=== PATIENT | female | born 1955 | race Caucasian/White ===

== ENCOUNTER 2022-06-08 13:44 | Outpatient (CLI) | payer MEDICARE, OTHER, SELFPAY ==
[2022-06-08] VITALS (10 sets, daily range): BP systolic 119–156; BP diastolic 78–103; PULSE 86–96; RESP 18–24; TEMP 36.4; O2SAT 92–96
--- NOTE | 2022-06-08 13:46 | DI.RAD.S_ITS ---
PROCEDURE: PAIN L INTERLAMINAR/CAUDAL INJ INDICATIONS: SPONDYLOSIS COMPARISON: None. FINDINGS: Fluoroscopic spot filming was performed to verify placement of spinal needles at the lower/mid lumbar level(s), as labeled on the films. Appropriate location(s) of the needle tip(s) was confirmed by injection of iodinated contrast. IMPRESSION: Needle placement as above Dictated by: Kurt Bella M.D. on 06/08/2022 at 16:51 Approved by: Kurt Bella M.D. on 06/08/2022 at 16:52
[2022-06-08] MEDS: IOPAMIDOL 15 ML VIAL 3 ML INJ (14:32)
[2022-06-08] MEDS: DEXAMETHASONE 10 MG/ML VIAL 20 MG INJ (14:32)
[2022-06-08] MEDS: BUPIVACAINE 0.25% (PF) VIAL 2 ML INJ (14:32)
[2022-06-08] MEDS: MIDAZOLAM 2 MG/2 ML VIAL 4 MG IV (14:32)
[2022-06-08] MEDS: BETAMETHASONE 30 MG/5 ML MDV 6 MG INJ (14:36)
--- NOTE | 2022-06-08 14:45 | P.PCN_ITS ---
Date/Time/Diagnoses Date of procedure: 06/08/22 Time of procedure: 14:45 Pre-procedure diagnosis: 1. HNP WITH RADICULAR FEATURES, 2. MULTILEVEL CENTRAL STENOSIS, Post-procedure diagnosis: same Procedure Notes Procedure: 1. FLUOROSCOPICALLY GUIDED CONTRAST CONTROLLED INTERLAMINAR EPIDURAL STEROID INJECTION - L3/4 Indications: Otilia is referred by Dr. Doyle for treatment of Bilateral Foraminal Stenosis L>R LE symptoms. Physician: Leroy Moore Total Fluoroscopy time (seconds): 11 Total sedation minutes: 14 Complications: none Procedure in detail & Post-procedure care: FINDINGS Multilevel Central Spinal Stenosis with Nerve Root Compression DESCRIPTION OF PROCEDURE Fluoroscopically guided, contrast-controlled L3/4 translaminar epidural steroid injection. Following review of allergy and review of potential side effects and complications, including, but not necessarily limited to, infection, allergic reaction, local tissue breakdown, temporary as well as permanent nerve injury, paralysis, stroke and possible , the patient indicated that the patient understood and agreed to proceed. An informed consent document was signed by the patient, witnessed by a nurse, and placed in the patient's chart. Additionally, other treatment options including modalities, medications, and physical therapy were reviewed with the patient. After review of previous anaesthesic history and IV conscious sedation the patient was deemed safe to proceed with today?s procedure with IV conscious sedation as ASA class II designation. Safety time-out was performed to confirm patient ID, procedure to be performed and site of procedure. IV sedation was accomplished with a combination of 4mg of Versed was administered by the RN after DO order, titrated to patient comfort during the course of the procedure while the patient remained responsive to all verbal commands. In the prone position, following sterile prep and drape of the lumbar region, the L3/4 translaminar space was identified fluoroscopically. The skin was anesthetized via a 25-gauge, 1.5-inch needle with 1% lidocaine solution. At this point, a 22-gauge short bevel spinal needle was atraumatically introduced and advanced under fluoroscopic guidance into the region of the L3/4 translaminar space. Depth was confirmed on lateral view. Radiological data, including multiple fluoroscopic views of the lumbar spine, reveal a spinal needle at the L3/4 translaminar space. Lateral views then show placement of the needle in the epidural space. Subsequent views show contrast material flowing superiorly and inferiorly in the epidural space. No vascular or intrathecal uptake is observed. At this point, using loss of resistance technique with saline and air, the epidural space was entered. This was confirmed following negative aspiration with injection of approximately 1.5 cc of Isovue 200, showing excellent epidural flow without vascular or intrathecal uptake. At this point, 1cc of 1% lidocaine solution combined with 3cc or 20mg of dexamethasone and 6mg of betamethasone was injected without incident. The patient tolerated the procedure well without signs or symptoms of complications prior to transfer to the recovery area continued monitoring without incident. The patient was then transferred to the recovery area where they were observed for an appropriate period of time after the injection. The patient reported a VAS score of 6 prior to the procedure and a post- procedure VAS of 0. POST OP INSTRUCTIONS The patient was provided a Pain Log to continue to record their response to the target-specific procedure prior to follow-up visit with their referring physician. Additionally, specific post-injection care instructions and a contact number to our office were provided if concerns arise regarding possible complications associated with the procedure are suspected.
--- NOTE | 2022-06-08 15:23 | PC.NURSE ---
Patient cleared from sedation monitoring. Bilateral feet asleep. Unsteady gait. Dr. Moore aware. Holding to allow more time for numbness to improve.
--- NOTE | 2022-06-08 16:22 | PC.NURSE ---
Patient was steady on feet able to take a few steps, cleared to d/c home. Pt d/c home at 1610.
== END 2022-06-08 16:10 | disposition home or self-care (01) ==
PROVIDERS: PCP Family Medicine; Referring Provider Physical Medicine & Rehabilitation; Visit Provider Physical Medicine & Rehabilitation
DX: M48.061 Spinal stenosis, lumbar region without neurogenic claudication (principal); M51.16 Intervertebral disc disorders with radiculopathy, lumbar region
CPT/HCPCS: 62323; 99152; J0702; J1100; J2250; J3490

== ENCOUNTER → 2022-07-03 12:40 | Outpatient (CLI) | payer MEDICARE, OTHER, SELFPAY ==
[2022-07-03 13:41] LABS: COVID19 -Nasal RAPID Negative (Negative)
== END ==
PROVIDERS: PCP Family Medicine; Referring Provider Orthopaedic Surgery; Visit Provider Orthopaedic Surgery
DX: Z20.822 Contact with and (suspected) exposure to COVID-19 (principal)
CPT/HCPCS: 87635; C9803

== ENCOUNTER 2022-07-04 06:07 | Day surgery (SDC) | payer MEDICARE, OTHER, SELFPAY ==
[2022-06-26 10:28] VITALS: BMI 43.9
[2022-07-04] VITALS (13 sets, daily range): BP systolic 91–152; BP diastolic 40–92; PULSE 80–91; RESP 16–19; TEMP 36–36.6; O2SAT 90–100; BMI 43.7
--- NOTE | 2022-07-04 06:00 | DI.RAD.S_ITS ---
PROCEDURE: XR KNEE RT 1TO2V INDICATIONS: TKA TECHNIQUE: 2 view(s) of the knee acquired. COMPARISON: [facility] Carlos Doyle, CR, XR KNEE ARTHRITIC SERIES BI, 05/04/2022, 11:57. FINDINGS: Bones: Patient is status post knee joint arthroplasty. Hardware components are in expected positions. Visualized bony structures are intact. Soft tissues: Overlying postoperative changes are noted. IMPRESSION: Expected immediate postoperative appearance of right TKA. Dictated by: Truman ALEXANDER Interpreted: Craig Laird MD on 07/04/2022 at 16:02 Transcribed by: MIKE on 07/04/2022 at 16:03 Approved by: Craig Laird M.D. on 07/05/2022 at 20:57
[2022-07-04] MEDS: ACETAMINOPHEN 325 MG TABLET 975 MG PO (07:06)
[2022-07-04] MEDS: CELECOXIB 200 MG CAPSULE PO (07:07)
[2022-07-04] MEDS: LACTATED RINGERS 1,000 ML 42 ML IV (07:11)
[2022-07-04] MEDS: VANCOMYCIN 1,000 MG/200 ML PIGGYBACK 200 MG IV (07:38)
--- NOTE | 2022-07-04 07:43 | P.OP_ITS ---
Operative Date/Time/Diagnoses Date of procedure: 07/04/22 Time of procedure: 08:10 Pre-op diagnosis: Right knee osteoarthritis severe Post-op diagnosis: same Procedure & Clinicians Procedure: Right total knee arthroplasty Same procedure as scheduled: Yes Indications: The patient has had progressively worsening right knee pain with radiographic changes consistent with arthritis. Non-operative management has failed and the patient has requested total knee replacement. The risks, benefits and alternatives to surgery were discussed with the patient prior to proceeding. Risks discussed included, but were not limited to, failure to relieve pain, stiffness, infection, nerve damage, deep venous thrombosis, pulmonary embolism, stroke, coma, heart attack, permanent paralysis and , as well as the potential need for eventual revision of the prosthetic. Surgeon: [facility] Recruiting Intern: Buck Wakefield Anesthesia Type: General Operative Notes Findings: Severe right knee osteoarthritis, adequate stability Closure Type: primary Specimen(s): none sent Prosthetic devices, grafts, tissues, transplants, or devices: [facility] BCS 2 size 6 femur, size 4 tibia, +11 poly, 32 x 7-1/2 mm patella Estimated Blood Loss (mL): 250 Blood products transfused: none Tourniquet time (min): 90 Procedure in detail: The patient was seen in the pre-operative area, where the patient identified the right knee as the operative site and this was marked with my initials. The patient received pre-operative antibiotics, and was taken to the operating room and placed on the operative table in the supine position. After satisfactory anesthesia, a grants administrator out was performed. The right leg was encircled with a tourniquet about the proximal thigh, and the leg was prepared from the toes to the tourniquet with ChloroPrep in the usual fashion and draped through sterile drapes. The leg was elevated and exsanguinated with Eschmark bandage and the tourniquet inflated to [250] mmHg pressure. The knee was approached through an approximately 18 cm incision centered over the patella and carried into the knee through a medial parapatellar arthrotomy. A portion of the medial and lateral meniscus was resected. Soft tissue was carefully mobilized around the patella the patella was measured with a caliper. Bone was resected from the patella and the patellar height was reconstituted with up an appropriate sized patellar component. A cover was then placed on the patella. A small amount of additional medial and lateral meniscus was resected. The distal femur was cut at 5?. A [+2] cut was used. It looked like an appropriate distal femoral cut and the cut was made without difficulty. An extramedullary guide was used for the tibial cut. 10 mm was resected off the least affected side.The tibia was prepared. The rotation was assessed. The patient was placed in extension residual medial and lateral meniscus as well as any residual bone was carefully resected. [No] additional tibia was resected. Hemostasis was achieved especially posteriorly. Additional local was injected into the posterior capsule. The extension gap was assessed and additional releases for gap balancing were performed as necessary. It was checked with the gap auto customize painter. The femoral component trial was placed and the notch was finished. The rotation was assessed and the appropriate size femoral guide was placed on the distal femur and finishing cuts were made. There was no evidence of notching. The anterior, posterior and chamfer cuts were then made. The posterior osteophytes and soft tissues were then removed. The posterior capsule was injected with part of a mixture of 60 ml 0.25% Marcaine mixed with 20 ml Exparel for post operative pain control. The remainder of this mixture was injected into the capsule and subcutaneous tissues during cement curing. The tibial and femoral components were then placed and the knee placed through a range of motion. Range of motion was [0-130], with good stability throughout the range. The trials were then removed, and the tibia was finished. The bone was prepared with pulsatile lavage, and dried with a sponge. Cement was applied and the final prosthetics placed. Excess cement was removed during and after cement curing. A brief Betadine soak was performed. After confirming there was no extruded cement posteriorly, the final tibial insert was placed. The knee was copiously irrigated and the tourniquet deflated. Hemostasis was obtained with the bovie cautery. A drain was placed and brought out superolaterally. The capsule was closed with interrupted nonabsorbable suture. The subcutaneous layer was closed with barbed sutures, and the skin with a running 3-0 V-Lock suture and skin richar. A erwin dressing was applied and the patient was taken to recovery having tolerated the procedure well. Complications: none Post-operative Condition: stable Disposition: Acute Care Plan for aftercare: The patient will be maintained on a standard total knee replacement protocol with weight bearing as tolerated. The patient will receive aspirin and sequential compression devices for DVT prophylaxis. The patient will be discharged home when safe for the home environment.
--- NOTE | 2022-07-04 07:43 | PM.PREOP ---
Pre-operative Note COVID-19 COVID-19 status: Negative Interval Note History & Physical reviewed/Exam performed by Physician: Yes Changes to H&P: No
[2022-07-04] MEDS: CEFAZOLIN 2 GM/100 ML PREMIX 100 ML IV ×2 (08:00→15:16)
[2022-07-04] MEDS: TRANEXAMIC ACID 1,000 MG VIAL 2000 MG INJ ×2 (08:07→09:53)
--- NOTE | 2022-07-04 08:46 | SUR.OPER ---
Supine on padded OR bed, head on pillow, arms secured on padded arm boards at <90 degrees abduction, safety belt at abdomen, tape over blanket over lower leg left, right leg in padded foot piece in sterile field
[2022-07-04] MEDS: BUPIVACAINE 0.25% (PF) 60 ML, EPINEPHrine 0.3 MG INJ (08:59)
[2022-07-04] MEDS: BUPIVACAINE LIPOSOME 266 MG/20 ML VIAL INJ (09:00)
[2022-07-04] MEDS: LACTATED RINGERS 1,000 ML 100 ML IV ×2 (11:25→22:34)
[2022-07-04] MEDS: ACETAMINOPHEN 325 MG TABLET 650 MG PO ×2 (11:31→17:00)
[2022-07-04] MEDS: NAPROXEN 250 MG TABLET PO (11:43)
[2022-07-04] MEDS: OXYCODONE IR 10 MG TABLET PO ×3 (11:43→18:16)
[2022-07-04] MEDS: IBUPROFEN 400 MG TABLET PO ×3 (14:03→21:25)
--- NOTE | 2022-07-04 15:15 | PT.IIE ---
Current Diagnoses Bilateral primary osteoarthritis of knee (07/04/22) Surgery Performed Operation Date: 07/04/22 07:45 Actual Procedures p Total Knee Arthroplasty(Right) - Miriam Booth MD Surgical History (Last Reviewed 07/04/22 @ 06:40 by Shantanu Knowles, RN) H/O left knee surgery Medical History (Last Reviewed 07/04/22 @ 06:40 by Shantanu Knowles, RN) Acid reflux Arthritis Degenerative joint disease of both hips Depression Facet arthropathy, lumbar Graves' disease HTN (hypertension) Lumbar foraminal stenosis Nonunion of fracture (~2020) Osteoarthritis Stomach ulcer Tricompartment degenerative joint disease of knee Physical Therapy Inpatient Evaluation/Re-Eval M1 PT/OT-IP Prior Functional Status Start: 07/04/22 15:56 Freq: NEEDED Status: Active Protocol: Document 07/04/22 15:15 DLM (Rec: 07/04/22 16:23 DLM [id number]) Medical Review Prior Functional Status Medical History Reviewed Yes Diet/Fluid Consistency Regular 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 She plans to stay on the main level of the house where there is a bedroom and bathroom. M2 PT-IP Current Condition Start: 07/04/22 15:56 Freq: NEEDED Status: Active Protocol: Document 07/04/22 15:15 DLM (Rec: 07/04/22 16:23 DLM [id number]) Physical Therapy Current Condition Current Condition Evaluation Date 07/04/22 Treatment Diagnosis right TKA, impaired mobility/ gait Onset Date 07/04/22 M3 PT-IP Subjective Start: 07/04/22 15:56 Freq: NEEDED Status: Active Protocol: Document 07/04/22 15:15 DLM (Rec: 07/04/22 16:23 DLM [id number]) Subjective Physical Therapy Visit Type Type Initial Evaluation Visit Start Time 14:30 Visit Stop Time 15:15 Total Visit Minutes 45 Notes severe OA in left knee also, hx fx left humerus 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 Patient Goals Discharge home with her to help and out-pt PT Therapy Pain Assessment Pain When Pain Assessed During Mobility Pain Present Pain Present Pain Reported Location RIGHT SHOULDER Intensity 4 Scale Used Numeric (0 - 10) Description Aching,With Movement Pain Management Techniques Re-positioning,Timing of Activity with Medications right knee Intensity 5 Scale Used Numeric (0 - 10) Description Aching,Tender,With Movement Pain Behaviors Guarding Pain Management Techniques Elevation,Re-positioning, Timing of Activity with Medications M4 PT-IP Mobility and Gait Start: 07/04/22 15:56 Freq: NEEDED Status: Active Protocol: Document 07/04/22 15:15 DL (Rec: 07/04/22 16:23 [facility] [id number]) PT-Bed Mobility Assessment Supine to Sit Supine to Sit Minimal Assistance,Bedrails Scooting Scooting to Edge of Bed Standby Assistance PT-Transfer Assessment Sit to and From Stand Sit to and from Stand Contact Guard Assistance,Use of Upper Extremities Equipment Transfer Assistive Device Gait Belt,Front Wheeled Walker Transfers Transfer Destination Chair,Bedside Commode Transfer Technique Stand Step Pivot Transfer Ability Level of Assist Contact Guard Assistance,Use of Upper Extremities Comments Mobility Comments She has significant crepitus left knee with sit to stand so she goes very slowly but safely. Pt up to bedside commode to urinate. Pt up to the recliner with feet elevated and ice on knee after activity. Gait Assessment Gait Gait Assistance Required: Contact Guard Assist Distance (Feet) 2 Able to Maintain Weight Bearing Status Yes During Gait Assistive Devices Assistive Device Gait Belt,Front Wheeled Walker Gait Deviations General Gait Pattern Decreased Stride Length Factors Limiting Gait Function Factors Limiting Gait Function Decreased Activity Tolerance, Decreased Strength,Limited Range of Motion,Pain,Poor Balance Comments Gait Comments The bed is tall for pt so sitting on the edge is more difficult for her. Stair Climbing Assessment Comments Stair Climbing Comments no stairs at home PT-Balance Assessment Sitting Balance and Reactions Static Sitting Balance Ability Good Dynamic Sitting Balance Ability Good Standing Balance and Reactions Static Standing Balance Ability Good Dynamic Standing Balance Ability Fair Device Used FWW M5 PT-IP Objective Assessments Start: 07/04/22 15:56 Freq: NEEDED Status: Active Protocol: Document 07/04/22 15:15 DLM (Rec: 07/04/22 16:23 DL [id number]) Orientation Orientation/Cognition Level of Alertness Alert Orientation Name,Age,Birthday,Month,Date, Year,Day of Week,Place, Situation Language Function Ability No Deficits Noted Safety Awareness Understands Safety Issues Memory Description No Deficits Noted Gross Range of Motion Upper Extremity ROM Assessment Bilaterally Impaired Impairments shoulder elevation right 110 degrees, left 90 degrees Lower Extremity ROM Assessment Right Impaired Impairments right knee 0-40 degrees with pain, crepitus left knee Strength Upper Extremity Strength Assessment Bilaterally Impaired Shoulder pain with elevation Lower Extremity Strength Assessment Bilaterally Impaired Hip needs assist to move right LE in the bed, flexion 2+/5 for gait Knee right knee ext 2+/5, left knee limited by crepitus and pain Ankle WNL Coordination Assessment Gross Coordination Gross Coordination WNL Sensation Assessment Sensation Gross Sensation WNL Comments Sensation Comments leroy wrap on right knee so this area not assessed Muscle Tone Muscle Tone WNL Yes M6 PT-IP Treatment Start: 07/04/22 15:56 Freq: NEEDED Status: Active Protocol: Document 07/04/22 15:15 DLM (Rec: 07/04/22 16:23 [facility] [id number]) Physical Therapy Treatment Exercises Exercises Ankle Pumps,Quad Sets,Heel Slides Education Education Provided Weight Bearing Status,Post-Op Packet,Safety Other Treatments Other Treatment Performed answered her questions about home progression and HEP Pt has a RICO dressing in place. M7 PT-IP Assessment and Plan Start: 07/04/22 15:56 Freq: NEEDED Status: Active Protocol: Document 07/04/22 15:15 DLM (Rec: 07/04/22 16:23 [facility] [id number]) PT Summary Assessment and Plan Potential Rehabilitation Potential Good Status of Condition at Evaluation Evolving Summary Impairments Pain,ROM,Strength,Balance,Bed Mobility,Transfers,Gait, Activity Tolerance Assessment Summary Otilia is day of surgery right TKA. She was able to get up to the bedside commode and up to the recliner. Her mobility is complicated by pain and arthritic changes in shoulders and left knee. Her mobility is slow today but this is in part to manage her joint pain as well as right TKA pain. She plans to stay on the main level of her home at discharge. She reports her Spouse is supportive and able to help at home. She is not ready for discharge today but if she continues to progress will plan for discharge tomorrow. Goals Bed Mobility Goal Independent Transfer Goal Independent,Front Wheeled Walker Gait Goal Standby Assistance,Front Wheel Walker Gait Distance 100 feet Days to Meet Goals 2 Frequency of Treatment Frequency Of Treatment Twice a Day Treatment Plan Physical Therapy Treatment Plan Bed Mobility Training,Transfer Training,Gait Training, Therapeutic Exercise,Balance Retraining,Post Op Education, Discharge Planning,Hot or Cold Pack,Neuromuscular Re-ed Precautions Other Precautions precautions for limitations in bilateral shoulders and left knee, fall risk Weight Bearing Status Weight Bearing Status Weight Bear as Tolerated Allowed Weight Bearing Amount (enter % right LE s/p TKA or #) (%) Recommendations To Nursing Amount of Assist Needed 3 or More Person Assist Discharge Recommendations PT Discharge Recommendations Home with Assistance, Outpatient PT Transportation Needs at Discharge Private Vehicle
--- NOTE | 2022-07-04 18:58 | PC.NURSE ---
Pt to room 204 via bed from PACU at approx. 1425. Pt awake and oriented x 3. Oriented to room, call light, tv controls, and bed controls. IVF infusing as ordered. C/O right shoulder pain -waiting for recovery from bilat knee replacements to have the right shoulder replaced. SCD's on and running. Bed alarm on for safety. Pt given water to drink and snack. Spouse is at the bedside.
[2022-07-04] MEDS: DOCUSATE 100 MG CAPSULE PO (21:25)
[2022-07-04] MEDS: ASPIRIN EC 81 MG TABLET PO (21:25)
[2022-07-04] MEDS: diphenhydrAMINE 25 MG TABLET PO (21:26)
[2022-07-05] MEDS: CEFAZOLIN 2 GM/100 ML PREMIX 100 ML IV (00:28)
[2022-07-05] MEDS: ACETAMINOPHEN 325 MG TABLET 650 MG PO ×2 (00:28→05:29)
[2022-07-05] MEDS: IBUPROFEN 400 MG TABLET PO ×3 (00:29→08:13)
[2022-07-05] MEDS: OXYCODONE IR 5 MG TABLET PO (00:42)
[2022-07-05 03:35] VITALS: BP 117/62; PULSE 87; RESP 18; TEMP 36.2; O2SAT 96
[2022-07-05] MEDS: PANTOPRAZOLE DR 40 MG TABLET PO (05:29)
[2022-07-05 06:53] LABS: Hematocrit 34.8 % (36-46); Hemoglobin 11.9 g/dL (12.0-16.0)
--- NOTE | 2022-07-05 07:46 | P.DS_ITS ---
History of Present Illness History of Present Illness Date Patient Seen: 07/05/22 Time Patient Seen: 07:47 Chief complaint: Knee pain Narrative: Pain is mild. Denies fever or chills. No nausea or vomiting. Discharge Providers Provider Discharge Date: 07/05/22 Primary care physician: Savi Doyle MD Consults: 07/04/22 06:00 Consult to Anesthesiology Routine Comment: Consulting Provider: Anesthesiologist Reason for consultation: Regional block for post operative pain control 07/04/22 10:58 Consult to Discharge Planning Routine Comment: Consult to Physical Therapy Evaluate & Treat Comment: Physician Instructions: postop TKA protocol Discharge provider: Buck Wakefield PA-C Summary Hospital Course Discharge Diagnosis: Severe right knee osteoarthritis Hospital Course: Right total knee arthroplasty Same procedure as scheduled: Yes Indications: The patient has had progressively worsening right knee pain with radiographic changes consistent with arthritis. Non-operative management has failed and the patient has requested total knee replacement. The risks, benefits and alternatives to surgery were discussed with the patient prior to proceeding. R isks discussed included, but were not limited to, failure to relieve pain, stiffness, infection, nerve damage, deep venous thrombosis, pulmonary embolism, stroke, coma, heart attack, permanent paralysis and , as well as the potential need for eventual revision of the prosthetic. Surgeon: Miriam Booth Farmworker Poultry: Buck Wakefield Anesthesia Type: General Operative Notes Findings: Severe right knee osteoarthritis, adequate stability Closure Type: primary Specimen(s): none sent Prosthetic devices, grafts, tissues, transplants, or devices: [employer] BCS 2 size 6 femur, size 4 tibia, +11 poly, 32 x 7-1/2 mm patella Estimated Blood Loss (mL): 250 Blood products transfused: none Tourniquet time (min): 90 Patient admitted to the hospital for right total knee arthroplasty. Patient consented to the same. Patient taken operating room yesterday underwent right total knee arthroplasty. Patient back in her room and is in stable condition. Mobilize with physical therapy. Standard total knee protocol. Multimodal pain management. Discharge home today after physical therapy if safe for home environment. Status at Discharge Cognitive/behavioral status at discharge: at baseline, oriented Functional status at discharge: uses cane/walker Overall status at discharge: patient is progressing back to baseline Exam Vital Signs (past 8 hours): - 07/04/22 23:50 07/05/22 03:35 Temperature 97.7 F 97.2 F L Pulse Rate 88 87 Respiratory Rate 17 18 Blood Pressure 136/74 117/62 Pulse Oximetry 96 96 Oxygen Flow Rate 0 0 Oxygen Delivery Method Room Air Oxygen Flow Rate 0 Narrative Exam Narrative: 67-year-old female resting comfortably in bed in no apparent distress. Knee dressing is clean, dry and intact. Motor functions intact distally. Const General: cooperative and comfortable Orientation: alert Chest Chest: normal inspection of the chest and normal palpation of entire chest wall Objective Labs Result Diagrams: 07/05/22 06:28 Labs: Laboratory Results - last 24 hr 07/05/22 06:28 Hgb 11.9 L Hct 34.8 L PFSH Medical History Acid reflux Arthritis Degenerative joint disease of both hips Depression Facet arthropathy, lumbar Graves' disease HTN (hypertension) Lumbar foraminal stenosis Nonunion of fracture (~2020) Osteoarthritis Stomach ulcer Tricompartment degenerative joint disease of knee Surgical History H/O left knee surgery Family History Father Cancer Mother COPD (chronic obstructive pulmonary disease) case management patient Grandmother Diabetes mellitus Social History household members: spouse Smoking Status: Former smoker alcohol intake: current Discharge Assessment & Plan Assessment and Plan Assessment: Patient progressing as expected status post right total knee arthroplasty. Plan of Treatment: Mobilize with physical therapy, standard total knee protocol. Multimodal pain management Discharge home today after physical therapy if safe for home environment. Discharge Plan Discharge Plan Patient Disposition: Home Discharge orders & Medications Discharge Orders: Discharge (Order); Ordered 07/05/22 Ordered By: Buck Wakefield Prescriptions: New acetaminophen 325 mg Tablet 650 mg PO Q6HR Qty: 60 0RF polyethylene glycol 3350 17 gram Powder In Packet 17 gm PO DAILY PRN (Reason: Constipation) Qty: 20 0RF aspirin 81 mg Tablet,Delayed Release (Dr/Ec) 81 mg PO BID Qty: 60 0RF ibuprofen 400 mg Tablet 400 mg PO Q4HR Qty: 60 0RF oxycodone 10 mg Tablet 10 mg PO Q3HR PRN (Reason: Pain, Severe (7-10)) Qty: 60 0RF Continued omeprazole 40 mg capsule,delayed release(DR/EC) 40 mg PO DAILY fluoxetine 20 mg capsule 40 mg PO DAILY Label Comments: TAKE 2 CAPSULES BY MOUTH EVERY DAY triamterene-hydrochlorothiazid 37.5-25 mg tablet 1 tab PO DAILY Label Comments: TAKE 1 TABLET BY MOUTH EVERY DAY bupropion HCl 300 mg tablet extended release 24 hr 300 mg PO QAM Discontinued acetaminophen 650 mg Tablet Extended Release 1,300 mg PO BID naproxen sodium [Aleve] 220 mg Capsule 220 mg PO BID PRN (Reason: Pain) Follow up/Referrals: Savi Doyle MD [Primary Care Provider] - Miriam Booth MD [Physician] - (2 weeks) Diet/Activity/Treatments Diet: Diet as Tolerated Skin/Wound/Dressing Care Report to your healthcare provider any signs of infection, such as:: chills, fever, increased pain, unusual drainage and unusual redness Dressing: Keep dressing clean and dry Visit Report/Discharge Packet Instructions: DI for Knee Replacement Stand Alone Forms: Surgery Discharge Discharge Data Primary Care Provider: Savi Doyle Attending Provider: Miriam Booth Quality VTE Deep Vein Thrombosis/Pulmonary Embolism Present on Admission: No
[2022-07-05 08:03] VITALS: BP 140/82; PULSE 75; RESP 18; TEMP 36.4; O2SAT 95
[2022-07-05] MEDS: buPROPion XL 150 MG TAB 300 MG PO (08:13)
[2022-07-05] MEDS: OXYCODONE IR 10 MG TABLET PO (08:13)
[2022-07-05] MEDS: TRIAMTERENE/HCTZ 37.5/25 CAPSULE 1 CAP PO (08:13)
[2022-07-05] MEDS: FLUoxetine 20 MG CAPSULE 40 MG PO (08:13)
[2022-07-05] MEDS: ASPIRIN EC 81 MG TABLET PO (08:13)
[2022-07-05] MEDS: DOCUSATE 100 MG CAPSULE PO (08:13)
--- NOTE | 2022-07-05 09:04 | PT.IPTN ---
Current Diagnoses Bilateral primary osteoarthritis of knee (07/04/22) Surgery Performed Operation Date: 07/04/22 07:45 Actual Procedures p Total Knee Arthroplasty(Right) - Miriam Booth MD Physical Therapy Treatment Note M2 PT-IP Current Condition Start: 07/04/22 15:56 Freq: NEEDED Status: Discharge Protocol: Document 07/05/22 08:25 SP (Rec: 07/05/22 11:46 SP [id number]) Physical Therapy Current Condition Current Condition Evaluation Date 07/04/22 Treatment Diagnosis right TKA, impaired mobility/ gait Onset Date 07/04/22 M3 PT-IP Subjective Start: 07/04/22 15:56 Freq: NEEDED Status: Discharge Protocol: Document 07/05/22 08:25 SP (Rec: 07/05/22 11:46 SP [id number]) Subjective Physical Therapy Visit Type Type Treatment Note Visit Start Time 08:25 Visit Stop Time 09:04 Total Visit Minutes 39 Number of NEWSPAPER EDITOR MANAGING Visits 1 Physical Therapy Visit Comments Patient Comments Pt inclined in bed when arrived. She was agreeable to working with therapist. Patient Goals Discharge home with her to help and out-pt PT Therapy Pain Assessment Pain When Pain Assessed During Mobility Pain Present Pain Present Pain Reported Location right knee Intensity 3 Scale Used Numeric (0 - 10) Description Aching,With Movement Pain Behaviors Facial Grimacing Pain Management Techniques Distraction,Re-positioning, Timing of Activity with Medications M4 PT-IP Mobility and Gait Start: 07/04/22 15:56 Freq: NEEDED Status: Discharge Protocol: Document 07/05/22 08:25 SP (Rec: 07/05/22 11:46 SP [id number]) PT-Bed Mobility Assessment Supine to Sit Supine to Sit Moderate Assistance,Maximum Assistance,1 Person Assistance Scooting Scooting to Edge of Bed Minimal Assistance PT-Transfer Assessment Sit to and From Stand Sit to and from Stand Contact Guard Assistance,Use of Upper Extremities Equipment Transfer Assistive Device Gait Belt,Front Wheeled Walker Transfers Transfer Destination Chair Transfer Technique pt ambulated using FWW Transfer Ability Level of Assist Standby Assistance,Contact Guard Assistance,Use of Upper Extremities Comments Mobility Comments NEWSPAPER EDITOR MANAGING discussion instruction in post op ex (performed in chair legs elevated): Heel slide w/ Strap and extra support behind R knee/foot approx 40 deg flexion AAROM. supine>sit w/ HOB flat for assessment self awareness what help needed at this time but will be sleeping in recliner, Max A x1. Scoot to EOB SBA heavy BUEs each side pelvis at time, support under RLE as needed, Shantel. NEWSPAPER EDITOR MANAGING donned gait belt. Sit>stand CGA cues push from bed. gait across room over/ back x2 laps total 60 ft CGA> SBA using fww. stand>sit in recliner close SBA. DIscussion education on sequencing getting into car: seat all way back, backing up fully reach back, contact gait belt extra support. Each LE into car support as needed to RLE, good understanding. Pt videotaped discussion and mobility as could for replacement of cues needed for her to help assist. Timing of NEWSPAPER EDITOR MANAGING availability wasn't in room, arrived end tx and good understanding how he can help her. She not need use stairs, instructed to wait to perform with outpatient PT. Gait Assessment Gait Gait Assistance Required: Standby Assistance,Contact Guard Assist Distance (Feet) 60 Able to Maintain Weight Bearing Status Yes During Gait Assistive Devices Assistive Device Gait Belt,Front Wheeled Walker Gait Deviations General Gait Pattern Antalgic,Decreased Stride Length,Decreased Feet Clearance,Step-to Gait Factors Limiting Gait Function Factors Limiting Gait Function Decreased Activity Tolerance, Decreased Strength,Limited Range of Motion,Pain Comments Gait Comments Cued for R knee flexion (not hip hike) during swing through and heel strike>toe for normalizing gait phases, improvement with demonstration , also small marching steps during turns. Good stability, improved step over step. Ed for amount UE WB on FWW needed . Stair Climbing Assessment Comments Stair Climbing Comments not need to do spiral stair case (BHR) to 2nd level right now, sleeping in recliner for now. PT-Balance Assessment Sitting Balance and Reactions Static Sitting Balance Ability Good Dynamic Sitting Balance Ability Good Standing Balance and Reactions Static Standing Balance Ability Good Dynamic Standing Balance Ability Fair Device Used FWW M5 PT-IP Objective Assessments Start: 07/04/22 15:56 Freq: NEEDED Status: Discharge Protocol: Document 07/04/22 15:15 DLM (Rec: 07/04/22 16:23 DLM [id number]) Orientation Orientation/Cognition Level of Alertness Alert Orientation Name,Age,Birthday,Month,Date, Year,Day of Week,Place, Situation Language Function Ability No Deficits Noted Safety Awareness Understands Safety Issues Memory Description No Deficits Noted Gross Range of Motion Upper Extremity ROM Assessment Bilaterally Impaired Impairments shoulder elevation right 110 degrees, left 90 degrees Lower Extremity ROM Assessment Right Impaired Impairments right knee 0-40 degrees with pain, crepitus left knee Strength Upper Extremity Strength Assessment Bilaterally Impaired Shoulder pain with elevation Lower Extremity Strength Assessment Bilaterally Impaired Hip needs assist to move right LE in the bed, flexion 2+/5 for gait Knee right knee ext 2+/5, left knee limited by crepitus and pain Ankle WNL Coordination Assessment Gross Coordination Gross Coordination WNL Sensation Assessment Sensation Gross Sensation WNL Comments Sensation Comments leroy wrap on right knee so this area not assessed Muscle Tone Muscle Tone WNL Yes M6 PT-IP Treatment Start: 07/04/22 15:56 Freq: NEEDED Status: Discharge Protocol: Document 07/05/22 08:25 SP (Rec: 07/05/22 11:46 SP [id number]) Physical Therapy Treatment Exercises Exercises Ankle Pumps,Gluteal Sets,Quad Sets,Heel Slides,Seated Knee Flexion/Extension Knee ROM Measurement 40 deg flexion AAROM w/ strap and therapist assist Education Education Provided Weight Bearing Status,Post-Op Packet,Safety Other Treatments Other Treatment Performed See mobility comments. Pt required extra time to answer questions proper form and recording with phone cues given during tx for carryover at home proper form. Pt has a RICO dressing in place. M7 PT-IP Assessment and Plan Start: 07/04/22 15:56 Freq: NEEDED Status: Discharge Protocol: Document 07/05/22 08:25 SP (Rec: 07/05/22 11:46 SP [id number]) PT Summary Assessment and Plan Potential Rehabilitation Potential Good Status of Condition at Evaluation Evolving Summary Impairments Pain,ROM,Strength,Balance,Bed Mobility,Transfers,Gait, Activity Tolerance Progress Towards Goals Progressing Toward Goals,Slow Progress due to Pain,Slow Progress due to Activity Tolerance Assessment Summary Max A for flat bed mob has at home but sleeping in recliner when going home and not needing to do stair to 2nd level at this time, Recommended wait until outpt PT. STS and gait around room w / FWW CGA>SBA, of which her can assist. Pt is ok to return home with to assist her when medically cleared. Is set up for outpt PT. Goals Bed Mobility Goal Independent Transfer Goal Independent,Front Wheeled Walker Gait Goal Standby Assistance,Front Wheel Walker Gait Distance 100 feet Days to Meet Goals 2 Frequency of Treatment Frequency Of Treatment Twice a Day Treatment Plan Physical Therapy Treatment Plan Bed Mobility Training,Transfer Training,Gait Training, Therapeutic Exercise,Balance Retraining,Post Op Education, Discharge Planning,Hot or Cold Pack,Neuromuscular Re-ed Other Recommendations and Next Treatment Post op ex, ROM, gait further Focus distance, stairs when able. Precautions Other Precautions precautions for limitations in bilateral shoulders and left knee, fall risk Weight Bearing Status Weight Bearing Status Weight Bear as Tolerated Allowed Weight Bearing Amount (enter % right LE s/p TKA or #) (%) Recommendations To Nursing Amount of Assist Needed Standby Assistance Discharge Recommendations PT Discharge Recommendations Home with Assistance, Outpatient PT Transportation Needs at Discharge Private Vehicle
--- NOTE | 2022-07-05 10:17 | PC.NURSE ---
Pt is dressed and ready for discharge home with Spouse. IV has been removed. Went over d/c instructions with Pt and Spouse-discussed d/c meds, time of last dose, reviewed stroke education, RICO dsg, s/s of infection, do not exceed 3000mg of Acetaminophen in 24hours, no driving while taking narcotics, and follow up. Pt and Spouse denied further questions and Pt was taken out via w/c by AUT[employer]IO MECHANIC to POV with Spouse and all belongings.
--- NOTE | 2022-07-05 11:45 | CM.DANOTE ---
DCP: Case received, EMR reviewed and met with patient. Spouse, Moisés, was also at bedside. Introduced self and role. Was able to obtain information regarding patient's baseline activity status prior to surgery. DCP assessment completed with information currently available. Patient is a 67 year old female who admitted yesterday morning to the care of the orthopedic team. PCP: Dr. Doyle. Payer: confirmed: Medicare/[employer] PPO. Patient came to the hospital via private vehicle for a surgical procedure. Patient had right total knee arthroplasty. Patient has history of right knee osteoarthritis. Met with patient and spouse in the room. Patient is alert and oriented, and was sitting up her chair. Her and spouse both reside in [place]. Patient does drive, uses a cane when needed. Spouse will be able to assist patient when she goes home. [place] P: Patient has discharge orders for home today after she works with P.T. Zoila Orozco RN/Ball Thread Machine Tender Discharge Planning/Care Management CM Discharge Assessment Start: 07/05/22 11:39 Freq: Status: Active Protocol: Document 07/05/22 11:39 (Rec: 07/05/22 11:45 [id number]) Discharge Planning Assessment Assigned Warehouse Sorter Zoila Orozco RN/Ball Thread Machine Tender Advance Directives? No History Provided By Patient,Medical Record Prior Living Arrangements House Household Members spouse Type of transporation used prior to Drives own vehicle admit Independent with ADL's Yes Is patient alert and oriented? Yes DME Already Rented / Owned Cane Barriers to Discharge No Discharge Plan Home Transportation Arrangement Spouse Referrals Initiated None needed Whiteboard Updated in Patient Room with Yes name and ext. # of Warehouse Sorter Review Status In Process Next Review Type Continued Stay Review Pre-Anesthesia Assessment Start: 06/26/22 10:28 Freq: Status: Discharge Protocol: Document 06/26/22 10:28 CAB (Rec: 06/26/22 11:26 CAB [id number]) Pre-Anesthesia Assessment Preferred Name Citlali Browne Patient Information Reviewed Via Phone Assessment Assessment Completed With Patient Diagnostic Results BMP/CMP,CBC,EKG Comment Labs/ECG done, not here, COVID screen-needs to schedule Primary Care Provider Savi Doyle Seen Specialist in Last 12 Months Yes Specialist Seen Orthopedist Primary Language Mohawk Presentation Manager Required No Height 5 ft 3 in Weight 248 lb Body Mass Index (BMI) 43.9 Hearing Ability Normal Visual Assist Contacts,Glasses Dentition Type Teeth, Natural Present,Teeth, Missing Barriers to Learning None Hx Anesthesia Reactions No Hx Family Anesthesia Reaction No Hx Malignant Hyperthermia No Hx Blood Transfusions No Anesthesia Review Requested No alcohol intake current alcohol intake frequency 0-2 drinks per day Smoking Status Current some day smoker how long ago did patient quit smoking Quit approx 1 year ago, occasional someday smoker Substance Use Type does not use Pain Present Pain Reported Musculoskeletal Symptoms Abnormal Gait,Deformity, Difficulty Walking,Joint Pain, Neck Pain History of Falling (Recent or History of Yes ) Patient is completely paralyzed or No completely immobile Prosthesis or Orthotic Device Cane Mental Status Oriented to own ability Is patient on oxygen? No Does patient have LOYD/SOB No Hx Sleep Apnea No Currently Taking a Beta Allan No Can You Climb a Flight of Stairs Without No SOB Hx Chest Pain No Hx SOB No Hx Syncope or Dizziness No Anti-Coagulant Therapy No Has a Learning Design Specialist No Cardiac Testing No Hx Pacemaker/ICD No Pacemaker Rep Required? No Cardiac Clearance Received Not Applicable Diet Type At Home Regular Dysphagia No Gastrointestinal Symptoms Reflux Chronic UTI No Urinary Catheter Present No Hx Urinary Self Catheterization No Diabetes No Patient No Lactating No Hx Drug Resistant Organism No Presence of External or Internal Medical No Devices Have you had any close contact with No someone diagnosed with COVID-19? Received a COVID vaccine? Yes Received all doses? Yes Marital Status Lives With spouse Current Living Arrangements House Number of Floors (Floors) Two Floors Support System Spouse Does the Patient Have Assistance After Yes Surgery Patient Discharge Plan Description Return Home Comment Pt advised one day length of stay per surgeon Additional comment Lives on [facility] Feels Safe in Current Environment Yes Been Physically Hurt or Threatened By a No Person in Current Environment Do you have thoughts of harming yourself None or others? Are you currently considering suicide? No Do you have a plan to hurt yourself or No Plan others? Do You Have Any Spiritual Beliefs That No May Affect Your HC Choices? Do You Have Any Cultural Practices That No May Affect Your HC Choices? Comment Zoroastrianism Who Can We Speak to About Patient's Care Family, friends Identifying Code for Release of Patient Declines to issue Information Health Care Proxy/Next of Kin Moisés () Health Care Proxy Emergency Contact Name Christie (Daughter) Emergency Contact Advance Directives? No Power of Host/Hostess Ground No PAC Instructions Do not shave/clip surgical site,Durable medical equipment ,Medications to take/avoid, Nasal antibiotic,No ETOH/ petroleum product on skin DOS, NPO,Post-op transportation,Pre -surgical wash,Sensory aids, Sturdy shoes/comfortable clothes,Do not bring valuables and remove jewelry
== END 2022-07-05 10:25 | disposition home or self-care (01) ==
LOC: OR 06:09 → AC 06:10
PROVIDERS: PCP Family Medicine; Referring Provider Orthopaedic Surgery; Visit Provider Orthopaedic Surgery
PROC: 0SRC0JZ Replacement of Right Knee Joint with Synthetic Substitute, Open Approach (ICD-10-PCS; CPT 27447; principal; 2022-07-04 07:45)
DX: M17.11 Unilateral primary osteoarthritis, right knee (principal); F17.210 Nicotine dependence, cigarettes, uncomplicated; E66.9 Obesity, unspecified; Z68.41 Body mass index [BMI] 40.0-44.9, adult
CPT/HCPCS: 27447; 36415; 73560; 85014; 85018; 97110; 97116; 97162; 97530; C1776; C1713; C9290; J0171; J0690; J2250; J3010

== ENCOUNTER → 2022-07-27 15:35 | Outpatient (CLI) | payer MEDICARE, OTHER, SELFPAY ==
[2022-07-04 06:39] VITALS: BMI 43.7
--- NOTE | 2022-07-27 | DI.US.S_ITS ---
PROCEDURE: US PERIPH VENOUS LOW EXTREM RT INDICATIONS: POST RIGHT KNEE SURGERY SWELLING TECHNIQUE: Real-time imaging, as well as color and pulse Doppler interrogation, were performed of the lower extremity deep veins from the inguinal ligament to the popliteal fossa. COMPARISON: None. FINDINGS: The common femoral, femoral and popliteal veins are normally compressible, and free of intraluminal thrombus. Color and pulse Doppler demonstrate normal phasic intraluminal flow. There is normal augmentation response to distal compression maneuver. IMPRESSION: No deep vein thrombosis of the right lower extremity. Dictated by: Antonia Gurrola M.D. on 07/27/2022 at 16:36 Approved by: Antonia Gurrola M.D. on 07/27/2022 at 16:37
== END ==
PROVIDERS: PCP Family Medicine; Referring Provider Orthopaedic Surgery; Visit Provider Orthopaedic Surgery
DX: Z96.651 Presence of right artificial knee joint (principal); M79.89 Other specified soft tissue disorders; M25.561 Pain in right knee
CPT/HCPCS: 93971

== ENCOUNTER → 2022-09-15 14:09 | Outpatient (CLI) | payer MEDICARE, OTHER, SELFPAY ==
[2022-07-04 06:39] VITALS: BMI 43.7
[2022-09-15 14:51] LABS: Add Manual Diff / Slide Review NO; Basophils Absolute Auto 100 /uL (0-100); Basophils Percent Auto 0.9 % (0-2); Eosinophils Absolute Auto 300 /uL (0-450); Eosinophils Percent Auto 3.3 % (2-4); Hematocrit 41.7 % (36-46); Hemoglobin 14.1 g/dL (12.0-16.0); Lymphocytes Absolute Auto 1400 /uL (1100-4500); Lymphocytes Percent Auto 16.6 % (25-40); Mean Corpuscular HGB Conc 33.9 % (30-36); Mean Corpuscular Hemoglobin 31.6 PG (26-34); Mean Corpuscular Volume 93.4 fL (80-100); Monocytes Absolute Auto 900 /uL (0-900); Monocytes Percent Auto 11.5 % (3-14); Neutrophils Absolute Auto 5500 /uL (1500-7000); Neutrophils Percent Auto 67.7 % (50-75); Platelet Count 163 X10^3/uL (150-400); Red Blood Cell Count 4.47 X10^6/uL (4.0-5.2); Red Cell Distribution Width 15.1 % (11.6-14.8); White Blood Cell Count 8.2 X10^3/uL (4.5-11.0)
[2022-09-15 15:05] LABS: BUN Creatinine Ratio 35.4 (6-22); Blood Urea Nitrogen 28 mg/dL (7-17); Calcium 9.4 mg/dL (8.4-10.2); Carbon Dioxide 25 mmol/L (22-32); Chloride 102 mmol/L (98-107); Estimated Glomerular Filt Rate > 60 mL/min (>60); Glucose 100 mg/dL (80-110); HEMOLYSIS < 15 (0-50); Potassium 4.2 mmol/L (3.4-5.1); Sodium 137 mmol/L (137-145)
== END ==
PROVIDERS: PCP Family Medicine; Referring Provider Orthopaedic Surgery; Visit Provider Orthopaedic Surgery
DX: Z01.812 Encounter for preprocedural laboratory examination (principal)
CPT/HCPCS: 36415; 80048; 85025

== ENCOUNTER 2023-04-12 12:48 | Outpatient (CLI) | payer MEDICARE, OTHER, SELFPAY ==
[2022-07-04 06:39] VITALS: BMI 43.7
[2023-04-12] VITALS (8 sets, daily range): BP systolic 125–167; BP diastolic 83–100; PULSE 88–98; RESP 17–21; O2SAT 95–97
--- NOTE | 2023-04-12 12:50 | DI.RAD.S_ITS ---
PROCEDURE: PAIN L INTERLAMINAR/CAUDAL INJ INDICATIONS: SPONDYLOSIS COMPARISON: [facility], XA, PAIN L INTERLAMINAR/CAUDAL INJ, 06/08/2022, 14:32. FINDINGS: Fluoroscopic spot filming was performed to verify placement of a spinal needle at the L5-S1 level, as labeled on the films. Appropriate location of the needle tip was confirmed by injection of iodinated contrast. IMPRESSION: No significant intraprocedural abnormality. Dictated by: Alvin Viera M.D. on 04/12/2023 at 15:24 Approved by: Alvin Viera M.D. on 04/12/2023 at 15:24
[2023-04-12] MEDS: MIDAZOLAM 2 MG/2 ML VIAL IV (14:14)
[2023-04-12] MEDS: BETAMETHASONE 30 MG/5 ML MDV 6 MG INJ (14:19)
[2023-04-12] MEDS: DEXAMETHASONE 10 MG/ML VIAL INJ (14:20)
[2023-04-12] MEDS: IOPAMIDOL 15 ML VIAL 3 ML INJ (14:20)
[2023-04-12] MEDS: BUPIVACAINE 0.25% (PF) VIAL 2 ML INJ (14:20)
--- NOTE | 2023-04-12 14:28 | PM.PROC.IR.1 ---
Date/Time/Diagnoses Date of procedure: 04/12/23 Time of procedure: 14:28 Pre-procedure diagnosis: 1. HNP WITH RADICULAR FEATURES, 2. MULTILEVEL CENTRAL STENOSIS, Post-procedure diagnosis: same Procedure Notes Procedure: 1. FLUOROSCOPICALLY GUIDED CONTRAST CONTROLLED INTERLAMINAR EPIDURAL STEROID INJECTION - L5/S1 Indications: Citlali Browne is referred by Dr. Doyle for treatment of Bilateral Foraminal Stenosis L>R LE symptoms. Physician: Leroy Moore Total Fluoroscopy time (seconds): 6 Total sedation minutes: 10 Complications: none Procedure in detail & Post-procedure care: FINDINGS Multilevel Central Spinal Stenosis with Nerve Root Compression DESCRIPTION OF PROCEDURE Fluoroscopically guided, contrast-controlled L5/S1 translaminar epidural steroid injection. Following review of allergy and review of potential side effects and complications, including, but not necessarily limited to, infection, allergic reaction, local tissue breakdown, temporary as well as permanent nerve injury, paralysis, stroke and possible , the patient indicated that the patient understood and agreed to proceed. An informed consent document was signed by the patient, witnessed by a nurse, and placed in the patient's chart. Additionally, other treatment options including modalities, medications, and physical therapy were reviewed with the patient. After review of previous anaesthesic history and IV conscious sedation the patient was deemed safe to proceed with today?s procedure with IV conscious sedation as ASA class II designation. Safety time-out was performed to confirm patient ID, procedure to be performed and site of procedure. IV sedation was accomplished with a combination of 2mg of Versed administered by the RN after DO order, titrated to patient comfort during the course of the procedure while the patient remained responsive to all verbal commands. In the prone position, following sterile prep and drape of the lumbar region, the L5/S1 translaminar space was identified fluoroscopically. The skin was anesthetized via a 25-gauge, 1.5-inch needle with 1% lidocaine solution. At this point, a 22-gauge short bevel spinal needle was atraumatically introduced and advanced under fluoroscopic guidance into the region of the L5/S1 translaminar space. Depth was confirmed on lateral view. Radiological data, including multiple fluoroscopic views of the lumbar spine, reveal a spinal needle at the L5/S1 translaminar space. Lateral views then show placement of the needle in the epidural space. Subsequent views show contrast material flowing superiorly and inferiorly in the epidural space. No vascular or intrathecal uptake is observed. At this point, using loss of resistance technique with saline and air, the epidural space was entered. This was confirmed following negative aspiration with injection of approximately 1.5cc of Isovue 200, showing excellent epidural flow without vascular or intrathecal uptake. At this point, 1cc of 1% lidocaine solution combined with 2cc or 10mg of dexamethasone and 6mg of betamethasone was injected without incident. The patent tolerated the procedure without signs of symptoms of complications prior to transfer to the recovery area for further monitoring. The patient was then transferred to the recovery area where they were observed for an appropriate period of time after the injection. The patient reported a VAS score of 6 prior to the procedure and a post-procedure VAS of 0. POST OP INSTRUCTIONS The patient was provided a Pain Log to continue to record their response to the target-specific procedure prior to follow-up visit with their referring physician. Additionally, specific post-injection care instructions and a contact number to our office were provided if concerns arise regarding possible complications associated with the procedure are suspected.
== END 2023-04-12 14:49 | disposition home or self-care (01) ==
PROVIDERS: PCP Family Medicine; Referring Provider Physical Medicine & Rehabilitation; Visit Provider Physical Medicine & Rehabilitation
DX: M51.17 Intervertebral disc disorders with radiculopathy, lumbosacral region (principal); M48.07 Spinal stenosis, lumbosacral region
CPT/HCPCS: 62323; 99152; J0702; J1100; J2250; J3490

== ENCOUNTER → 2023-06-12 10:15 | Outpatient (CLI) | payer MEDICARE, OTHER, SELFPAY ==
[2023-06-06 13:49] VITALS: BMI 43.7
--- NOTE | 2023-06-12 | DI.CT.S_ITS ---
PROCEDURE: CT SHOULDER RIGHT WITHOUT CON INDICATIONS: Osteoarthritis, right shoulder TECHNIQUE: Noncontrast 1-1.5 mm thick sections acquired from the acromioclavicular joint to the inferior scapula, with coronal and sagittal reformatting. COMPARISON: None. FINDINGS: Image quality: Excellent. Bones: There is moderate acromioclavicular joint osteoarthritis with joint space narrowing, subchondral sclerosis and downward osteophyte formation depressing on musculotendinous junction of supraspinatus. Severe glenohumeral joint osteoarthritic changes are seen with near complete loss of joint space, extensive subchondral sclerosis and cyst formation and prominent marginal osteophyte formation. No acute fracture or dislocation. No suspicious bony lesions. The visualized portion of right upper ribs are intact. Soft tissues: There is significant loss of subacromial space concerning for rupture of distal supraspinatus tendon. Sagittal images shows mild supraspinatus and infraspinatus muscle atrophy. No abnormal soft tissue calcifications. Small to moderate joint effusion and subacromial subdeltoid bursal fluid is seen, no gross intra-articular loose bodies. IMPRESSION: 1. Severe glenohumeral joint osteoarthritis and moderate to severe acromioclavicular joint osteoarthritis. No shoulder fracture or dislocation. No suspicious bony lesions. 2. Significant loss of subacromial space concerning for full-thickness rotator cuff tendon rupture. Mild mild supraspinatus and infraspinatus muscle atrophy. 3. No abnormal soft tissue calcifications or calcified intra-articular loose bodies. Small to moderate joint effusion and subacromial subdeltoid bursal fluid. Dictated by: Dayron Moore M.D. on 06/12/2023 at 14:18 Approved by: Dayron Moore M.D. on 06/12/2023 at 14:32
--- NOTE | 2023-06-12 10:21 | DI.RAD.S_ITS ---
PROCEDURE: XR LUMBAR SPINE MIN 4V INDICATIONS: Low back pain TECHNIQUE: 5 views of the lumbar spine were acquired, including bilateral oblique views. COMPARISON: [facility], [place], MRI L-SPINE W/O CONTRAST, 12/31/2021, 11:13. Outside Facility, [place], XR L-SPINE 4-6V, 07/04/2021, 14:23. FINDINGS: Bones: 5 nonrib-bearing vertebrae are present. There is grade 1 anterolisthesis measuring 7 mm of L4 on L5. Moderate to severe disc and foraminal narrowing at L5-S1. No vertebral body compression fractures. No suspicious bony lesions. Soft tissues: Overlying bowel gas pattern is normal. No suspicious soft tissue calcifications. Oblique images: No pars defects. IMPRESSION: Degenerative changes most severe at L5-S1. Dictated by: Piedad Arellano M.D. on 06/12/2023 at 14:24 Approved by: Piedad Arellano M.D. on 06/12/2023 at 14:26
[2023-06-12 10:50] LABS: Add Manual Diff / Slide Review NO; Basophils Absolute Auto 100 /uL (0-100); Basophils Percent Auto 0.6 % (0-2); Eosinophils Absolute Auto 300 /uL (0-450); Eosinophils Percent Auto 2.6 % (2-4); Hematocrit 42.1 % (36-46); Lymphocytes Absolute Auto 1800 /uL (1100-4500); Lymphocytes Percent Auto 15.8 % (25-40); Mean Corpuscular HGB Conc 33.3 % (30-36); Mean Corpuscular Volume 93.2 fL (80-100); Monocytes Absolute Auto 1300 /uL (0-900); Monocytes Percent Auto 11.4 % (3-14); Neutrophils Absolute Auto 8000 /uL (1500-7000); Neutrophils Percent Auto 69.6 % (50-75); Platelet Count 201 X10^3/uL (150-400); Red Blood Cell Count 4.52 X10^6/uL (4.0-5.2); Red Cell Distribution Width 14.8 % (11.6-14.8); White Blood Cell Count 11.5 X10^3/uL (4.5-11.0)
[2023-06-12 11:03] LABS: BUN Creatinine Ratio 34.6 (6-22); Blood Urea Nitrogen 28 mg/dL (7-17); Calcium 9.8 mg/dL (8.4-10.2); Carbon Dioxide 26 mmol/L (22-32); Chloride 99 mmol/L (98-107); Estimated Glomerular Filt Rate > 60 mL/min (>60); Glucose 103 mg/dL (80-110); HEMOLYSIS < 15 (0-50); Potassium 4.4 mmol/L (3.4-5.1); Sodium 136 mmol/L (137-145)
[2023-06-12 13:35] LABS: Appearance Urine UA CLEAR; Bilirubin Urine UA NEGATIVE (NEGATIVE); Color Urine UA YELLOW; Glucose Urine UA NEGATIVE (Negative); Ketones Urine UA NEGATIVE (NEGATIVE); Leukocyte Esterase Urine UA 2+ (NEGATIVE); Nitrite Urine UA NEGATIVE (Negative); Occult Blood Urine UA NEGATIVE (Negative); Protein Urine UA NEGATIVE (Negative); Urobilinogen Urine UA 0.2 E.U./dL (0.2)
[2023-06-12 13:38] LABS: pH Urine UA 6.5 (4.5-8.0)
[2023-06-12 13:41] LABS: Bacteria Urine Few (2-10); Culture Indicated Urine Specimen Cultured; RBC Urine None Seen (0-5/HPF); Squamous Epithelial Cell Urine 5-10 /HPF (0-5/HPF); WBC Urine 1-5/HPF (0-5/HPF)
== END ==
PROVIDERS: PCP Family Medicine; Referring Provider Orthopaedic Surgery; Visit Provider Orthopaedic Surgery
DX: Z01.818 Encounter for other preprocedural examination (principal); Z01.812 Encounter for preprocedural laboratory examination; M19.011 Primary osteoarthritis, right shoulder; M47.816 Spondylosis without myelopathy or radiculopathy, lumbar region; M47.817 Spondylosis without myelopathy or radiculopathy, lumbosacral region; N39.0 Urinary tract infection, site not specified; M48.061 Spinal stenosis, lumbar region without neurogenic claudication
CPT/HCPCS: 36415; 72110; 73200; 80048; 81001; 85025; 87086; 93005

== ENCOUNTER 2023-07-18 09:25 | Day surgery (SDC) | payer MEDICARE, OTHER, SELFPAY ==
[2023-06-06 13:49] VITALS: BMI 43.7
[2023-07-09 13:18] VITALS: BMI 45.1
[2023-07-18] VITALS (12 sets, daily range): BP systolic 94–141; BP diastolic 64–97; PULSE 81–91; RESP 12–23; TEMP 35.7–36.4; O2SAT 91–94; BMI 46.0
--- NOTE | 2023-07-18 06:00 | DI.RAD.S_ITS ---
PROCEDURE: XR SHOULDER RT 1V INDICATIONS: RTSA TECHNIQUE: 1 views of the shoulder were acquired. COMPARISON: None. FINDINGS: Bones: Right shoulder arthroplasty. No fractures or dislocations. No suspicious bony lesions. Visualized ribs appear intact. Soft tissues: No suspicious soft tissue calcifications. IMPRESSION: Expected appearance of shoulder arthroplasty. Dictated by: Kurt Bella M.D. on 07/18/2023 at 14:41 Approved by: Kurt Bella M.D. on 07/18/2023 at 14:41
[2023-07-18] MEDS: ACETAMINOPHEN 325 MG TABLET 975 MG PO (09:58)
[2023-07-18] MEDS: LACTATED RINGERS 1,000 ML 42 ML IV ×2 (10:04→13:36)
--- NOTE | 2023-07-18 11:13 | P.OP_ITS ---
Operative Date/Time/Diagnoses Date of procedure: 07/18/23 Time of procedure: 14:15 Pre-op diagnosis: Right shoulder cuff tear arthropathy Post-op diagnosis: same Procedure & Clinicians Procedure: Right reverse total shoulder arthroplasty Same procedure as scheduled: Yes Indications: Indications: This is a who has rotator cuff arthropathy. Symptoms have been present for years, insidious onset. Patient has failed conservative therapy including injections, physical therapy, anti-inflammatories and activity modification. After extensive discussion in clinic, they wished to go forward with surgery. Risks and benefits were described including the risk of infection, bleeding, damage to internal structures including nerves. We also di scussed the risk of failure of surgery and the need for revision surgery as well as the risk of anesthesia. The patient expressed understanding with these risks and wished to go forward with surgery. Surgeon: Urban Douglass Spinning Bath Person: Damian Hunter Click Yes if Unassisted: No Anesthesia Type: General Operative Notes Findings: Findings: Osteoarthritis of the glenoid and humeral head as well as a defient rotator cuff as noted on preoperative imaging and under direct visualization Closure Type: primary Specimen(s): none sent Prosthetic devices, grafts, tissues, transplants, or devices: Tornier implants Base plate: standard 25 mm, full wedge Glenosphere: Standard 36 mm Stem: Perform 3+ Poly: 0, 10 degree Estimated Blood Loss (mL): 50 Procedure in detail: Patient was seen in the preoperative holding unit. The correct right shoulder was identified and marked with my initials. Again we discussed the risks and benefits of surgery and they wished to go forward with surgery. The patient was brought back to the operating room and placed supine on the operating table. Smooth endotracheal intubation was performed by anesthesia. All prominences were padded and they were placed into the beach chair position. Intravenous antibiotics were given. The right shoulder was then prepped with the standard sterile preparation and draping. A time-out was then performed in my initials were again identified on the correct shoulder. 1 g of IV tranexamic acid was given. A standard deltopectoral incision was made. Skin flaps were made. The cephalic vein was identified and retracted laterally. This was protected throughout the remainder of the case. Sharp dissection was made along the deltoid, subacromial and subcoracoid space to release adhesions. The conjoined tendon was identified and the axillary nerve was palpated and continuous using the tug test. It was protected throughout the remainder of the case. A brown retractor was placed underneath the deltoid muscle and a darach retractor underneath the conjoint tendon. The anterior circumflex artery and associated veins on the lower border of the subscapularis were identified and tied off using 0-Vicryl. The biceps tendon was identified in the bicipital groove. This was released from its sheath, and taken from its origin on the glenoid and tied into the pectoralis tendon for a solid tenodesis. We then began a subscapularis peel. The subscapularis was tagged with an Ethibond suture. A 360 degree circumferential release of the subscapularis was performed with protection of the axillary nerve. The coracohumeral ligament was released at the base of the coracoid. The coracoacromial ligament was left intact. The shoulder was then dislocated. Osteophytes were removed using combination of rongeur and osteotome. The rotator cuff was noted to be insufficient. An intramedullary guide was used set at version of 30?. Using an oscillating saw a conservative humeral head cut was made. Impaction reamers were reamed up to a size 3 stem with a built-in angle 135?. A neck protector was placed. Attention was then turned to the glenoid. After retracting the humeral head posteriorly a circumferential release was performed of the capsule with protection of the axillary nerve. The labrum was then released starting at the biceps anchor and going around the rim a small amount of triceps was released from the inferior glenoid. A center guide pin was then placed using the guide, followed by Reamer. After adequate cartilage was removed the center drill hole was drilled and measured. The base plate was then implanted and screwed into place. The superior drill hole was drilled and filled in a nonlocking fashion, followed by the inferior and anterior holes in locking fashion, the posterior hole was also filled. A 36 standard glenosphere was then selected and screwed into place onto the base plate. Turning back to the humerus, the humeral head was delivered and trialed with a 0, 10 degree poly. The arm was taken through range of motion and this was felt to be stable. The trial was then removed and a dilute Betadine wash was then performed with 1 L of sterile saline. Before placing the final implant, drill holes were made in the bicipital groove for the subscapularis repair, and sutures were passed through the drill holes. The final stem was then impacted into the humerus. The shoulder was then reduced and again brought through range of motion and was felt to be stable. The interval was then closed using #2 Ethibond. Subscapularis was noted to be insufficient and so it was not repaired. The deltopectoral interval was then closed with #2 Ethibond. The skin was closed with 2-0 PDS and richar followed by Aquacel dressing. Patient was awoken from anesthesia and brought back to the postoperative recovery unit without issue. They were placed into a sling. Assisting participation: This operation could not have been safely performed (without compromising the technical results or length of the procedure) without the assistance of a skilled surgical coordinator. The surgical coordinator was medically necessary for proper positioning, retraction and manipulation of instruments, proper exposure, graft prep, and manipulation of tissue. Complications: none Post-operative Condition: stable Disposition: PACU Plan for aftercare: Postoperative instructions: Sling to remain on for 6 weeks. No external rotation past neutral for 6 weeks. OK to come out of the sling to shower. Okay to shower over the Aquacel dressing. If any water gets underneath the dressing, remove the dressing. First postoperative visit in 2 weeks.
--- NOTE | 2023-07-18 11:13 | PM.PREOP ---
Pre-operative Note Interval Note History & Physical reviewed/Exam performed by Physician: Yes Changes to H&P: No
[2023-07-18] MEDS: CEFAZOLIN 2 GM/100 ML PREMIX 100 ML IV ×2 (11:53→21:03)
--- NOTE | 2023-07-18 12:23 | SUR.OPER ---
Beach chair with Skytron shoulder positioner. Lower body on padded OR bed. Head in foam padded head cradle, secured with straps. Non-operative arm secured <90 degrees abduction. Pillow under knees. Safety belt at thigh. Cloth tape over blanket over lower legs. Tape across towel over torso to secure to bed.
[2023-07-18] MEDS: ROPIVACAINE/EPI/CLONIDINE/KET 50 ML SYRINGE INJ (12:31)
[2023-07-18] MEDS: OXYCODONE IR 5 MG TABLET PO ×3 (14:21→21:02)
[2023-07-18] MEDS: ONDANSETRON 4 MG/2 ML INJ IV (14:28)
[2023-07-18] MEDS: hydrOXYzine 50 MG/ML INJ 25 MG IM (14:34)
[2023-07-18] MEDS: HYDROMORPHONE 1 MG INJ IV (14:37)
[2023-07-18] MEDS: ALBUTEROL/IPRATROPIUM 3 ML AMPUL INH (15:15)
[2023-07-18] MEDS: diphenhydrAMINE 50 MG/ML VIAL 12.5 MG IV (15:25)
--- NOTE | 2023-07-18 17:13 | SUR.PHASEII ---
Patient's saO2 remains 88-93% on room air in Phase II. other vss. Duoneb given as ordered and Incentive spirometry performed every 20minutes. Patient still rates pain at 10/10. FLACC 2/10. Patient also complains of unrelenting itching to entire body. IV benadryl given as ordered. Padmini DURAND and Dr. Douglass both aware of these findings. Dr. Douglass came to bedside when patient in Phase II. Instructed to give patient 20 more minutes and if oxygenation not improved, may send patient to acute care. SaO2 remains unchanged after the 20 minutes and patient transferred to acute care via stretcher accompanied by this Pacu/Phase II RN. Report given to Sadie ESCAMILLA.
--- NOTE | 2023-07-18 19:28 | PC.NURSE ---
Patient arrived from PACU at 1700 this evening. She is A&OX4 on RA (02 sats low 90's). VSS, afebrile. Noted SOB with movement and expiratory wheezing. She is able to use the BSC and get settled into the room. She tolerates dinner well and she states prior nausea resolved. She is slightly diaphoretic this evening and c.o itching, no rashes observed. Ice pack to R shoulder, aquacel c/d/i, shoulder immobilizer in place. She has +CMS to R hand and fingers. Continuous monitoring.
[2023-07-18] MEDS: DOCUSATE 100 MG CAPSULE PO (21:02)
[2023-07-18] MEDS: ASPIRIN EC 81 MG TABLET PO (21:02)
[2023-07-18] MEDS: SENNOSIDES 8.6 MG TABLET 17.2 MG PO (21:02)
[2023-07-18] MEDS: LACTATED RINGERS 1,000 ML 120 ML IV (21:03)
[2023-07-18] MEDS: diphenhydrAMINE 25 MG TABLET 50 MG PO (23:02)
[2023-07-18] MEDS: IBUPROFEN 600 MG TABLET PO (23:02)
[2023-07-19] MEDS: OXYCODONE IR 5 MG TABLET PO ×4 (01:20→11:22)
[2023-07-19] MEDS: CEFAZOLIN 2 GM/100 ML PREMIX 100 ML IV (04:25)
[2023-07-19 04:26] VITALS: BP 117/62; PULSE 94; RESP 18; TEMP 35.9; O2SAT 94
[2023-07-19 05:17] LABS: Hematocrit 36.7 % (36-46); Hemoglobin 12.3 g/dL (12.0-16.0); Mean Corpuscular HGB Conc 33.4 % (30-36); Mean Corpuscular Hemoglobin 31.7 PG (26-34); Mean Corpuscular Volume 94.8 fL (80-100); Platelet Count 157 X10^3/uL (150-400); Red Blood Cell Count 3.88 X10^6/uL (4.0-5.2); Red Cell Distribution Width 16.5 % (11.6-14.8); White Blood Cell Count 12.5 X10^3/uL (4.5-11.0)
[2023-07-19] MEDS: IBUPROFEN 600 MG TABLET PO ×2 (06:29→11:22)
[2023-07-19] MEDS: PANTOPRAZOLE DR 40 MG TABLET PO (06:29)
--- NOTE | 2023-07-19 07:35 | PM.DS.1 ---
History of Present Illness History of Present Illness Date Patient Seen: 07/19/23 Time Patient Seen: 07:35 Chief complaint: R Reverse Total Shoulder Arthroplasty 07/18 Narrative: Operative Date/Time/Diagnoses Date of procedure: 07/18/23 Time of procedure: 14:15 Pre-op diagnosis: Right shoulder cuff tear arthropathy Post-op diagnosis: same Procedure & Clinicians Procedure: Right reverse total shoulder arthroplasty Same procedure as scheduled: Yes Indications: Indications: This is a who has rotator cuff arthropathy. Symptoms have been present for years, insidious onset. Patient has failed conservative therapy including injections, physical therapy, anti-inflammatories and activity modification. After extensive discussion in clinic, they wished to go forward with surgery. Risks and benefits were described including the risk of infection, bleeding, damage to internal structures including nerves. We also discussed the risk of failure of surgery and the need for revision surgery as well as the risk of anesthesia. The patient expressed understanding with these risks and wished to go forward with surgery. Surgeon: Urban Douglass Weigher And Mixer: Damian Hunter Click Yes if Unassisted: No Anesthesia Type: General Operative Notes Findings: Findings: Osteoarthritis of the glenoid and humeral head as well as a defient rotator cuff as noted on preoperative imaging and under direct visualization Closure Type: primary Specimen(s): none sent Prosthetic devices, grafts, tissues, transplants, or devices: Tornier implants Base plate: standard 25 mm, full wedge Glenosphere: Standard 36 mm Stem: Perform 3+ Poly: 0, 10 degree Estimated Blood Loss (mL): 50 Discharge Providers Provider Date of admission: 07/18/23 09:25 Discharge Date: 07/19/23 Primary care physician: Savi Doyle MD Consults: 07/18/23 06:00 Consult to Anesthesiology Routine Comment: Consulting Provider: Anesthesiologist Reason for consultation: Regional block for post operative pain control 07/18/23 16:45 Consult to Discharge Planning Routine Comment: Consult to Physical Therapy Evaluate & Treat Comment: Physician Instructions: Evaluate and Treat Discharge provider: Smitha Balderas PA-C Summary Hospital Course Discharge Diagnosis: Right rotator cuff arthropathy, s/p right reverse total shoulder arthroplasty Hospital Course: Ms Espinosa's hospital course was remarkable for poor pain control in the recovery area, necessitating an overnight stay. On the morning of POD# 1, she was feeling much better and wanted to go home. She was eating and voiding without difficulty and her pain was well-controlled w/ oral medication. Exam Vital Signs (past 8 hours): - 07/19/23 04:26 Temperature 96.6 F L Pulse Rate 94 H Respiratory Rate 18 Blood Pressure 117/62 Pulse Oximetry 94 Oxygen Flow Rate 0 Oxygen Delivery Method Room Air Oxygen Flow Rate 0 Narrative Exam Narrative: 5/5 furniture installer strength, sensation to light touch intact throughout RUE. Aquacel dressing CDI. Ice wrap and sling were malpositioned overnight. Objective Labs 07/19/23 05:00 Labs: Laboratory Results - last 24 hr 07/19/23 05:00 WBC 12.5 H RBC 3.88 L Hgb 12.3 Hct 36.7 MCV 94.8 MCH 31.7 MCHC 33.4 RDW 16.5 H Plt Count 157 PFSH Medical History Morbid obesity due to excess calories Acid reflux Nonunion of fracture (~2020) Arthritis Osteoarthritis Graves' disease Stomach ulcer HTN (hypertension) Depression Degenerative joint disease of both hips Tricompartment degenerative joint disease of knee Lumbar foraminal stenosis Facet arthropathy, lumbar Surgical History (Updated 07/09/23 @ 14:09 by Nara Tran RN) S/P epidural steroid injection History of total left knee replacement (10/30/22) History of total right knee replacement (07/04/22) H/O left knee surgery Family History Father Cancer Mother COPD (chronic obstructive pulmonary disease) case management patient Grandmother Diabetes mellitus Social History household members: spouse Smoking Status: Current some day smoker alcohol intake: former Discharge Assessment & Plan Assessment and Plan Assessment: Right rotator cuff arthropathy, s/p right reverse total shoulder arthroplasty Plan of Treatment: Discharge home after PT repositions sling, multimodal pain control, follow up in office as scheduled. Discharge Plan Discharge Plan Patient Disposition: Home Nursing Discharge Comment: Tylenol 975mg gien at 10:00am. Oxycodone 10mg given at 3:30pm. Discharge orders & Medications Prescriptions: New oxycodone 5 mg tablet 5 mg PO Q6H PRN (Reason: pain) Qty: 30 0RF ondansetron HCl 4 mg tablet 4 mg PO Q8H PRN (Reason: nausea and vomiting) Qty: 10 0RF gabapentin 300 mg capsule 300 mg PO TID Qty: 90 0RF Continued bupropion HCl 150 mg tablet extended release 24 hr 300 mg PO DAILY omeprazole 40 mg capsule,delayed release(DR/EC) 40 mg PO DAILY fluoxetine 20 mg capsule 40 mg PO DAILY Patient Comments: TAKE 2 CAPSULES BY MOUTH EVERY DAY triamterene-hydrochlorothiazid 37.5-25 mg tablet 1 tab PO DAILY Patient Comments: TAKE 1 TABLET BY MOUTH EVERY DAY Follow up/Referrals: Savi Doyle MD [Primary Care Provider] - Urban Douglass MD [Physician] - As previously scheduled (Follow up w/ Dr Douglass on 08/02/2023 @ 1:20 pm [facility] office in [place].) Diet/Activity/Treatments Diet: Diet as Tolerated Skin/Wound/Dressing Care Report to your healthcare provider any signs of infection, such as:: chills, fever, night sweats, increased pain, unusual drainage and unusual redness Dressing: Aquacel dressing to remain on for 2 weeks. This will be removed in clinic as well as the underlying richar. Okay to shower with soap and water running over top of the dressing. NOTE: If water gets underneath the dressing, please remove the dressing and replace with clean dry 4x4s. Visit Report/Discharge Packet Instructions: DI for Prescription Opioid Use, DI for Shoulder Replacement Stand Alone Forms: Patient Portal/API, Stroke Signs & Symptoms, Surgery Discharge Discharge Data Primary Care Provider: Savi Doyle Quality VTE Deep Vein Thrombosis/Pulmonary Embolism Present on Admission: No
[2023-07-19 08:00] VITALS: BP 121/70; PULSE 90; RESP 18; TEMP 36.3; O2SAT 94
[2023-07-19] MEDS: buPROPion XL 150 MG TAB 300 MG PO (08:34)
[2023-07-19] MEDS: DOCUSATE 100 MG CAPSULE PO (08:35)
[2023-07-19] MEDS: ASPIRIN EC 81 MG TABLET PO (08:35)
[2023-07-19] MEDS: FLUoxetine 20 MG CAPSULE 40 MG PO (08:36)
[2023-07-19] MEDS: TRIAMTERENE/HCTZ 37.5/25 CAPSULE 1 CAP PO (08:43)
--- NOTE | 2023-07-19 11:22 | PT.IIE ---
Current Diagnoses Other specific arthropathies, not elsewhere classified, right shoulder (07/18/23) Surgery Performed Operation Date: 07/18/23 11:15 Actual Procedures p Total Shoulder Arthroplasty - Reverse with biceps tenodesis(Right) - Urban Douglass MD Surgical History (Last Updated 07/09/23 @ 14:09 by Nara Tran RN) H/O left knee surgery History of total left knee replacement (10/30/22) History of total right knee replacement (07/04/22) S/P epidural steroid injection Medical History (Last Reviewed 06/07/23 @ 16:47 by Leroy Moore DO) Acid reflux Arthritis Degenerative joint disease of both hips Depression Facet arthropathy, lumbar Graves' disease HTN (hypertension) Lumbar foraminal stenosis Morbid obesity due to excess calories Nonunion of fracture (~2020) Osteoarthritis Stomach ulcer Tricompartment degenerative joint disease of knee Physical Therapy Inpatient Evaluation/Re-Eval M1 PT/OT-IP Prior Functional Status Start: 07/19/23 09:32 Freq: NEEDED Status: Active Protocol: Document 07/19/23 10:50 MB (Rec: 07/19/23 11:22 MB [id number]) Medical Review Prior Functional Status Medical History Reviewed Yes Diet/Fluid Consistency Regular Communication WNLs Mobility and Gait Mod I, used cane in right hand Activities of Daily Living and IADL's Mod I Social History Household Members spouse Living Arrangements House Number of Floors (Floors) One Floor Number of Stairs To Enter/Railing? Ramped entrance Home Environment Standard Height Toilet,Walk in Shower Home Equipment Front Wheel Walker,Straight Cane,Bedside Commode Employment Status Retired M2 PT-IP Current Condition Start: 07/19/23 09:32 Freq: NEEDED Status: Active Protocol: Document 07/19/23 10:50 MB (Rec: 07/19/23 11:22 MB [id number]) Physical Therapy Current Condition Current Condition Evaluation Date 07/19/23 Treatment Diagnosis Right reverse total shoulder arthroplasty M3 PT-IP Subjective Start: 07/19/23 09:32 Freq: NEEDED Status: Active Protocol: Document 07/19/23 10:50 MB (Rec: 07/19/23 11:22 MB [id number]) Subjective Physical Therapy Visit Type Type Initial Evaluation Visit Start Time 10:50 Visit Stop Time 11:02 Total Visit Minutes 12 Number of PREANALYTICS TEAM LEAD Visits 0 Physical Therapy Visit Comments Patient Comments [id number]. Therapy Pain Assessment Pain When Pain Assessed At Rest Pain Present Pain Present Pain Reported Location right arm Intensity 4 Description Acute Pain Behaviors Guarding M4 PT-IP Mobility and Gait Start: 07/19/23 09:32 Freq: NEEDED Status: Active Protocol: Document 07/19/23 10:50 MB (Rec: 07/19/23 11:22 MB [id number]) PT-Bed Mobility Assessment Supine to Sit Supine to Sit Minimal Assistance,1 Person Assistance Sit to Supine Sit to Supine Moderate Assistance,1 Person Assistance,Bedrails Scooting Scooting to Edge of Bed Standby Assistance PT-Transfer Assessment Sit to and From Stand Sit to and from Stand Minimal Assistance,1 Person Assistance,Use of Upper Extremities Equipment Transfer Assistive Device Gait Belt Orthotic/Prosthetic Devices or Brace: Yes Transfers Transfer Destination Chair Transfer Technique Stand Step Pivot Transfer Ability Level of Assist Standby Assistance,1 Person Assistance Comments Mobility Comments Pt uses her SPC in left hand and she also demonstrates transfer and some stepping without AD Gait Assessment Gait Gait Assistance Required: Standby Assistance,1 Person Assist Distance (Feet) 75 Able to Maintain Weight Bearing Status Yes During Gait Assistive Devices Assistive Device Straight Cane Orthotic/Prosthetic Devices or Brace: Yes Gait Deviations General Gait Pattern Wide Based Gait Factors Limiting Gait Function Factors Limiting Gait Function Pain,Poor Balance,Poor Safety Awareness Comments Gait Comments Pt with wide STANTON, uses cane in left hand for 75'x2 and then no AD for 20'. Pt is SBA. Cues to keep moving her cane with each step and not to let it lag behind. PT lowers the cane and this helps. Pt states she also used the RW to get to BSC with nsg and PT ed pt that she should not be trying that at home d/t increased risk of tripping herself. Pt wears right UE sling throughout PT treatment. PT-Balance Assessment Sitting Balance and Reactions Static Sitting Balance Ability Good Dynamic Sitting Balance Ability Good Standing Balance and Reactions Static Standing Balance Ability Fair Dynamic Standing Balance Ability Fair M5 PT-IP Objective Assessments Start: 07/19/23 09:32 Freq: NEEDED Status: Active Protocol: Document 07/19/23 10:50 MB (Rec: 07/19/23 11:22 MB [id number]) Orientation Orientation/Cognition Level of Alertness Alert Orientation Name,Age,Birthday,Month,Date, Year,Day of Week,Place, Situation Language Function Ability No Deficits Noted Safety Awareness Understands Safety Issues Gross Range of Motion Upper Extremity ROM Assessment Right Impaired Impairments S/p RTSR Lower Extremity ROM Assessment Within Functional Limits Strength Upper Extremity Strength Assessment Right Impaired Lower Extremity Strength Assessment Within Functional Limits Comments Strength Comments Cannot MMT right shoulder post -op Coordination Assessment Gross Coordination Gross Coordination Impaired M6 PT-IP Treatment Start: 07/19/23 09:32 Freq: NEEDED Status: Active Protocol: Document 07/19/23 10:50 MB (Rec: 07/19/23 11:22 MB [id number]) Physical Therapy Treatment Education Education Provided Precautions,Weight Bearing Status,Safety Other Treatments Other Treatment Performed PT ed pt to wear sling and for no ROM of her right shoulder, ed pt in gentle elbow and wrist ROM M7 PT-IP Assessment and Plan Start: 07/19/23 09:32 Freq: NEEDED Status: Active Protocol: Document 07/19/23 10:50 MB (Rec: 07/19/23 11:22 MB [id number]) PT Summary Assessment and Plan Potential Rehabilitation Potential Good Status of Condition at Evaluation Stable Summary Impairments Pain,ROM,Strength,Bed Mobility ,Transfers,Gait,Activity Tolerance Progress Towards Goals Progressing Toward Goals Assessment Summary Pt is a 68 y/o female presenting with decreased I s/ p right RTSR last date. She is wearing sling and requires SBA for transfers and gait with cane in left hand or no AD. She will d/c home with her who will assist her. She has no steps to enter and can use her BSC at bed side or over toilet and in shower. She is discharging presently. Frequency of Treatment Frequency Of Treatment Discharge Precautions Shoulder Precautions Sling,No External Rotation Other Precautions Pt in sling and assume NWB right UE Weight Bearing Status Weight Bearing Status Non-Weight Bearing Recommendations To Nursing Amount of Assist Needed 1 Person Assist Discharge Recommendations PT Discharge Recommendations Home with 05/03 Assist Available Transportation Needs at Discharge Private Vehicle
--- NOTE | 2023-07-19 11:46 | PC.NURSE ---
Patient is A&Ox4, VSS on RA. She reports her pain level is tolerable at 4-5/10. Aquacel dressing is C/D/I. She tolerates breakfast well and is assessed by PT this a.m. She verbalizes understanding of R shoulder immobilizer/sling, site care, activity limitations, as well as medications, s/sx of infection and her post operative appointment. She is encouraged to call with any questions or concerns. She is cleared for discharge home with back to [place] this a.m. She is escorted via w/ch to private vehicle with her and all of her belongings including ice pack prescribed by ) and her cane at approximately 11 25 this a.m.
--- NOTE | 2023-07-19 15:13 | CM.DANOTE ---
Discharge Planning/Care Management CM Discharge Assessment Start: 07/19/23 15:10 Freq: Status: Active Protocol: Document 07/19/23 15:11 SHAUN (Rec: 07/19/23 15:13 SHAUN [id number]) Discharge Planning Assessment Assigned Felt Cutting Machine Operator JAN Richard DPOA/Assigned Designee Name Moisés Espinosa, spouse Contact Information [phone] Health Care Proxy/Next of Kin Moisés () Health Care Proxy or [phone] Emergency Contact Name Christie (Daughter) Emergency Contact Advance Directives? No History Provided By Patient,Medical Record Prior Living Arrangements House Household Members spouse Type of transporation used prior to Drives own vehicle admit Independent with ADL's Yes Is patient alert and oriented? Yes Barriers to Discharge No Comment Patient is s/p Right rotator cuff arthropathy, s/p right reverse total shoulder arthroplasty. Patient planned for return home w/spouse to assist and therapies have cleared patient for this plan. No discharge needs identified by this SENIOR ORACLE SOA DEVELOPER Discharge Plan Home Transportation Arrangement Spouse Referrals Initiated None needed
== END 2023-07-19 11:25 | disposition home or self-care (01) ==
LOC: AC 07-19 11:04 → OR 07-19 12:04
PROVIDERS: PCP Family Medicine; Referring Provider Orthopaedic Surgery; Visit Provider Orthopaedic Surgery
PROC: (CPT 23472; principal; 2023-07-18 11:15)
DX: M75.101 Unspecified rotator cuff tear or rupture of right shoulder, not specified as traumatic (principal); M19.011 Primary osteoarthritis, right shoulder
CPT/HCPCS: 23472; 36415; 73020; 85027; 97161; C1776; J0690; J1100; J1170; J1200; J2250; J2405; J2704; J3010; J3410; J3490

== ENCOUNTER → 2023-08-29 12:06 | Outpatient (CLI) | payer MEDICARE, OTHER, SELFPAY ==
[2023-07-18 17:50] VITALS: BMI 46.0
--- NOTE | 2023-08-29 | DI.RAD.S_ITS ---
Bone Density Report Name: COLT DAVID Age: 68 Sex: Female Ethnicity: White Date of : 1955 Indication: postmenopausal; screening for osteoporosis; Referring Provider: ERIC YANG Study: Bone densitometry was performed. Exam Date: August 29, 2023 Accession number: [id number] Bone Density: Region BMD T-score Z-score Classification AP Spine(L1-L4) 0.916 -1.2 0.7 Osteopenia Femoral Neck (Left) 0.589 -2.3 -0.8 Osteopenia Total Hip (Left) 0.663 -2.3 -1.0 Osteopenia Femoral Neck (Right) 0.795 -0.5 1.1 Normal Total Hip (Right) 0.711 -1.9 -0.6 Osteopenia Total Hip Mean 0.687 -2.1 -0.8 Osteopenia World Health Organization criteria for BMD impression classify patients as: Normal (T-score at or above -1.0), Osteopenia (T-score between -1.0 and -2.5), or Osteoporosis (T-score at or below -2.5). 10-year Fracture Risk(1): Major Osteoporotic Fracture 10.0% Hip Fracture 1.6% Reported Risk Factors: [place] (), Neck BMD=0.589, BMI=47.6 (1) FRAX(R) Version 3.08. Fracture probability calculated for an untreated patient. Fracture probability may be lower if the patient has received treatment. Impression: The patient has low bone mass, based on the Left Total Hip T-score. The patient has an estimated ten-year risk of hip fracture of 1.6% and an estimated ten-year risk of major fracture of 10%, based on the WHO FRAX algorithm. Discussion: BONE DENSITY IS LOW AT ONE OR MORE SKELETAL SITES. This patient's lowest T-score is low at one or more skeletal sites. It meets the World Health Organization's (WHO) criteria for low bone mass (T-score between -1.0 and -2.5). The patient's 10-year risk of fracture as calculated by FRAX is less than the threshold where pharmacological therapy is recommended by the National Osteoporosis Foundation (NOF). However, all treatment decisions require clinical judgment and consideration of individual patient factors, including patient preferences, comorbidities, previous drug use, risk factors not captured in the FRAX model (e.g., frailty, falls, vitamin D deficiency, increased bone turnover, interval significant decline in bone density) and possible under or overestimation of fracture risk by FRAX. The patient should follow a healthful lifestyle (good nutrition with adequate calcium and vitamin D, and appropriate weight-bearing exercise). Follow-Up: Consider repeating this study in 2 to 3 years to reassess this patient's status, or sooner if there is some new clinical indication. Reported by: EDUARDO AGUILAR M.D. on 08/29/2023 1:02:00 PM.
[2023-08-29 13:12] LABS: Add Manual Diff / Slide Review NO; Basophils Absolute Auto 100 /uL (0-100); Eosinophils Absolute Auto 300 /uL (0-450); Eosinophils Percent Auto 3.7 % (2-4); Hematocrit 40.1 % (36-46); Hemoglobin 13.4 g/dL (12.0-16.0); Lymphocytes Absolute Auto 1300 /uL (1100-4500); Lymphocytes Percent Auto 19.6 % (25-40); Mean Corpuscular HGB Conc 33.3 % (30-36); Mean Corpuscular Hemoglobin 31.1 PG (26-34); Mean Corpuscular Volume 93.3 fL (80-100); Monocytes Absolute Auto 700 /uL (0-900); Monocytes Percent Auto 10.1 % (3-14); Neutrophils Absolute Auto 4500 /uL (1500-7000); Neutrophils Percent Auto 65.6 % (50-75); Platelet Count 190 X10^3/uL (150-400); White Blood Cell Count 6.9 X10^3/uL (4.5-11.0)
== END ==
PROVIDERS: PCP Family Medicine; Referring Provider Orthopaedic Surgery; Visit Provider Orthopaedic Surgery
DX: M16.11 Unilateral primary osteoarthritis, right hip (principal); M81.0 Age-related osteoporosis without current pathological fracture; Z01.812 Encounter for preprocedural laboratory examination
CPT/HCPCS: 36415; 77080; 85025

== ENCOUNTER 2023-12-13 14:14 | Inpatient (IN) | payer MEDICARE, OTHER, SELFPAY ==
[2023-07-18 17:50] VITALS: BMI 46.0
[2023-12-06 12:50] VITALS: BMI 45.7
[2023-12-13] VITALS (13 sets, daily range): BP systolic 97–137; BP diastolic 60–86; PULSE 75–85; RESP 16–95; TEMP 36.1–36.6; O2SAT 16–97; BMI 42.1
--- NOTE | 2023-12-13 | DI.RAD.S_ITS ---
PROCEDURE: XR PELVIS 1-2V INDICATIONS: intra op pelvis TECHNIQUE: 1 view of the lower pelvis acquired. COMPARISON: [facility], CR, XR PELVIS WITH LATERAL HIP RIGHT, 08/17/2023, 12:27. [facility], CR, XR HIP W PEL IF DONE RT 2V, 12/13/2023, 15:52. FINDINGS: Right hip temporary arthroplasty projects in the expected location. IMPRESSION: Right hip arthroplasty projects in the expected location Intraoperative guidance provided. Dictated by: Jose De Jesus Soto M.D. on 12/13/2023 at 16:54 Approved by: Jose De Jesus Soto M.D. on 12/13/2023 at 16:56
--- NOTE | 2023-12-13 06:00 | DI.RAD.S_ITS ---
PROCEDURE: XR HIP W PEL IF DONE RT 2V INDICATIONS: CLAUDINE TECHNIQUE: AP pelvis and lateral view of the hip acquired. COMPARISON: [facility], EUGENIO, XR PELVIS 1-2V, 12/13/2023, 13:53. FINDINGS: Bones: Patient is status post right hip arthroplasty, with hardware components in expected positions. The hip joint appears congruent. The visualized bony structures appear intact. Moderate left hip DJD. Soft tissues: Overlying postoperative changes are noted. No suspicious soft tissue densities. IMPRESSION: Expected post-operative appearance of a hip arthroplasty. Dictated by: Jose De Jesus Soto M.D. on 12/13/2023 at 21:26 Approved by: Jose De Jesus Soto M.D. on 12/13/2023 at 21:27
[2023-12-13] MEDS: CELECOXIB 200 MG CAPSULE PO (09:29)
[2023-12-13] MEDS: ACETAMINOPHEN 325 MG TABLET 975 MG PO (09:29)
[2023-12-13] MEDS: LACTATED RINGERS 1,000 ML 42 ML IV ×2 (09:30→13:36)
[2023-12-13] MEDS: VANCOMYCIN 1,000 MG/200 ML PIGGYBACK 200 MG IV (10:38)
--- NOTE | 2023-12-13 11:33 | PM.PREOP ---
Pre-operative Note Interval Note History & Physical reviewed/Exam performed by Physician: Yes Changes to H&P: No
--- NOTE | 2023-12-13 11:33 | PM.OP.1 ---
Operative Date/Time/Diagnoses Date of procedure: 12/13/23 Time of procedure: 12:30 Pre-op diagnosis: Severe right hip AVN Post-op diagnosis: same Procedure & Clinicians Procedure: Right total hip arthroplasty posterior approach Same procedure as scheduled: Yes Indications: The patient has had progressively worsening right hip pain with radiographic changes consistent with severe AVN with collapse of the right femoral head and progressive right hip arthritis. Non-operative management has failed and the patient has requested total hip replacement. The risks, benefits and alternatives to surgery were discussed with the patient prior to proceeding. Risks discussed included, but were not limited to, failure to relieve pain, leg length discrepancy, dislocation, stiffness, infection, nerve damage, deep venous thrombosis, pulmonary embolism, stroke, coma, heart attack, permanent paralysis and , as well as the potential need for eventual revision of the prosthetic. Surgeon: Miriam Booth Client Care Specialist: Buck Wakefield Anesthesia Type: General and Spinal Operative Notes Findings: Severe right hip avascular necrosis with collapse of the femoral head, significant joint effusion, washed out acetabulum was some bony defect in the anterior superior aspect of the acetabulum, adequate stability, soft but overall adequate bone Closure Type: primary Specimen(s): none sent Prosthetic devices, grafts, tissues, transplants, or devices: Booth and nephew R3 size 52 cup, two 6.5 mm screws, neutral poly liner, size 14 cemented Synergy, 36 x +4 Oxinium femoral head, small distal cement restrictor, size 11 cementralizer Estimated Blood Loss (mL): 250 Blood products transfused: none Procedure in detail: The patient was seen in the pre-operative area, where the patient identified the right hip as the operative site and this was marked with my initials. The patient received pre-operative antibiotics and was taken to the operating room and placed on the operative table in the left lateral decubitus position after satisfactory anesthesia. A time study observer out was performed. The right leg was prepared from the ankle to the iliac crest with ChloroPrep in the usual fashion and draped through sterile drapes. A PA was used during the procedure and was essential for intraoperative traction and safe implantation of the components. The patient was noted to be morbidly obese and required extensive assistance due to her high BMI. She had severe AVN and was completely incapacitated preoperatively. With excellent surgical assistance adequate visualization was achieved. The hip was approached through an approximately 20 cm incision centered over the greater trochanter and curving gently posteriorly as it went proximally. This was carried sharply to the fascia abelino, which was divided and retracted with a self retaining retractor. The trochanteric bursa was excised with care being taken to avoid the sciatic nerve, which was identified and protected throughout the case. The short external rotators were incised and the capsulomuscular flap was raised and tagged for later repair. The hip was dislocated, and a femoral neck osteotomy performed approximately 15 mm above the lesser trochanter. Retractors were placed around the femur. The canal was opened with a box cutting osteotome, followed by a T handled reamer and a lateralizing reamer. The canal was then reamed and broached was then used, followed by sequential broaching until there was good stability of the broach in the femur. Retractors were placed to expose the acetabulum. The labrum and central soft tissues were removed. Reaming was performed initially going up in 2 mm increments, then 1 mm increments until good bite was obtained with an odd sized reamer. She had a very washed out the acetabulum. I was able to go up to a size 51 and maintain stability in the anterior and posterior columns. She was quite washed out in the superior aspect of the acetabulum but I was able to get adequate stability of the cup. The cup 1 mm larger than the last reamer was then inserted using the appropriate anteversion guides. It was further stabilized with 2 screws. A trial neutral liner was placed. The broach was placed in the canal. A trial head and neck were then placed and the hip relocated and checked for leg length and stability. An intraoperative film confirmed the component position and no evidence of fracture. The patient was stable in the position of sleep, of squatting, and could be put through a range of motion with 45 degrees internal rotation without dislocation. At 90 degrees flexion, internal rotation to 70? was possible before dislocation. This was felt to be satisfactory and the appropriate components were opened, and the trials were removed. The acetabular liner was impacted into position. She had very soft bone and a high BMI and it was felt that we should probably symmetric cemented components. The canal was meticulously prepped with a pulse lavage. We used though vaginal packing with epinephrine as well as a whistle tip cautery in order to adequately dry the canal. The cement was carefully mixed and then pressurized. The final stem was then impacted into the prepared femoral canal. The cement was carefully allowed to set and was pressurized with a distal cement restrictor. A brief Betadine soak was performed while trialing with head options. The hip was meticulously irrigated with normal saline. Finally the femoral head was impacted onto the stem. The acetabulum was cleared of all material and the hip relocated one final time. The capsulomuscular flap was then repaired to the greater trochanter though an awl hole using the tag sutures. The short external rotators were repaired with a nonabsorbable suture. The fascia abelino was closed with Vicryl. The subcutaneous layer was closed with barbed sutures and skin richar. A erwin Dressing was applied and the patient was taken to recovery having tolerated the procedure well. Complications: none Post-operative Condition: stable Disposition: Acute Care Plan for aftercare: The patient will be maintained on a standard total hip replacement protocol with weight bearing as tolerated and posterior hip precautions. The patient will receive Aspirin and sequential compression devices for DVT prophylaxis. The patient will be discharged home when safe for the home environment.
[2023-12-13] MEDS: CEFAZOLIN 2 GM/100 ML PREMIX 100 ML IV ×2 (12:30→20:26)
[2023-12-13] MEDS: TRANEXAMIC ACID 1,000 MG VIAL 1000 MG INJ ×2 (12:45→15:10)
--- NOTE | 2023-12-13 13:21 | SUR.OPER ---
Lateral on padded OR bed. Gel axillary roll. Arms secured on padded armboard with pillow supporting top arm. Padded hip positioner braces x4 - anterior and posterior chest and pelvis. Additional gel pad used anterior pelvis. Gel pad under bottom leg from knee to foot and secured with tape over sheet.
[2023-12-13] MEDS: BUPIVACAINE 0.25% (PF) 60 ML, EPINEPHrine 0.3 MG INJ (13:34)
[2023-12-13] MEDS: BUPIVACAINE LIPOSOME 266 MG/20 ML VIAL INJ (13:34)
[2023-12-13] MEDS: OXYCODONE IR 5 MG TABLET PO (16:05)
[2023-12-13] MEDS: ONDANSETRON 4 MG ODT PO (16:56)
[2023-12-13] MEDS: LACTATED RINGERS 1,000 ML 100 ML IV (17:00)
[2023-12-13] MEDS: OXYCODONE IR 10 MG TABLET PO ×3 (17:01→23:13)
[2023-12-13] MEDS: IBUPROFEN 400 MG TABLET PO (18:35)
[2023-12-13] MEDS: hydrOXYzine HCL 25 MG TABLET PO ×2 (18:35→23:51)
[2023-12-13] MEDS: DOCUSATE 100 MG CAPSULE PO (20:26)
[2023-12-13] MEDS: ACETAMINOPHEN 325 MG TABLET 650 MG PO (20:26)
[2023-12-13] MEDS: ASPIRIN EC 81 MG TABLET PO (20:26)
[2023-12-13] MEDS: GABAPENTIN 300 MG CAPSULE PO (23:13)
[2023-12-14 00:29] VITALS: BP 108/52; PULSE 90; RESP 18; TEMP 36.5; O2SAT 95
[2023-12-14] MEDS: ACETAMINOPHEN 325 MG TABLET 650 MG PO ×3 (02:41→18:29)
[2023-12-14] MEDS: OXYCODONE IR 10 MG TABLET PO ×5 (02:41→20:45)
[2023-12-14] MEDS: LACTATED RINGERS 1,000 ML 100 ML IV (02:59)
[2023-12-14] MEDS: CEFAZOLIN 2 GM/100 ML PREMIX 100 ML IV (04:16)
[2023-12-14 04:50] VITALS: BP 114/57; PULSE 85; RESP 18; TEMP 36.3; O2SAT 95
[2023-12-14] MEDS: PANTOPRAZOLE DR 40 MG TABLET PO (05:21)
[2023-12-14 05:22] LABS: Hematocrit 35.3 % (36-46); Hemoglobin 11.8 g/dL (12.0-16.0)
[2023-12-14] MEDS: IBUPROFEN 400 MG TABLET PO ×2 (08:11→16:30)
[2023-12-14] MEDS: polyethylene glycoL 3350 17 GM POWD.PACK PO (08:11)
[2023-12-14] MEDS: FLUoxetine 20 MG CAPSULE 40 MG PO (08:12)
[2023-12-14] MEDS: ASPIRIN EC 81 MG TABLET PO ×2 (08:12→20:45)
[2023-12-14] MEDS: buPROPion XL 150 MG TAB 300 MG PO (08:12)
[2023-12-14] MEDS: TRIAMTERENE/HCTZ 37.5/25 CAPSULE 1 CAP PO (08:12)
[2023-12-14] MEDS: DOCUSATE 100 MG CAPSULE PO ×2 (08:12→20:54)
--- NOTE | 2023-12-14 08:32 | PM.DS.1 ---
History of Present Illness History of Present Illness Chief complaint: R CLAUDINE *OPB* Narrative: Citlali Browne is a pleasant 68 year old female who is POD#1 s/p Right posterior CLAUDINE by Dr. Booth. Reports overall she is doing okay, better than yesterday but states she had a hard time sleeping d/t night sweats and itching. Pain is mild (2-3) and well controlled with oral Oxycodone. Has post-op pain medication at home already. Has been able to get up and urinate without issue. Has post-op PT appts set up already at [facility] but does not have her first appointment until 01/04/24. Has walker at home for post-op use. Denies fever, chills, chest pain, SOB, nausea, vomiting. Operative Date/Time/Diagnoses Date of procedure: 12/13/23 Time of procedure: 12:30 Pre-op diagnosis: Severe right hip AVN Post-op diagnosis: same Procedure & Clinicians Procedure: Right total hip arthroplasty posterior approach Same procedure as scheduled: Yes Indications: The patient has had progressively worsening right hip pain with radiographic changes consistent with severe AVN with collapse of the right femoral head and progressive right hip arthritis. Non-operative management has failed and the patient has requested total hip replacement. The risks, benefits and alternatives to surgery were discussed with the patient prior to proceeding. Risks discussed included, but were not limited to, failure to relieve pain, leg length discrepancy, dislocation, stiffness, infection, nerve damage, deep venous thrombosis, pulmonary embolism, stroke, coma, heart attack, permanent paralysis and , as well as the potential need for eventual revision of the prosthetic. Surgeon: Miriam Booth Corporate Quality Assurance Manager: Buck Wakefield Anesthesia Type: General and Spinal Discharge Providers Provider Discharge Date: 12/14/23 Primary care physician: Savi Doyle MD Consults: 12/13/23 06:00 Consult to Anesthesiology Routine Comment: Consulting Provider: Anesthesiologist Reason for consultation: Regional block for post operative pain control 12/13/23 16:46 Consult to Discharge Planning Routine Comment: Consult to Occupational Therapy Evaluate & Treat Comment: Physician Instructions: Evaluate and treat Consult to Physical Therapy Evaluate & Treat Comment: Physician Instructions: post op CLADUINE protocol Discharge provider: Karyn Arellano PA-C Summary Hospital Course Discharge Diagnosis: stable s/p Right posterior CLAUDINE Hospital Course: Hosptial course complicated by poor mobilization one POD#1 Exam Vital Signs (past 8 hours): - 12/14/23 04:50 Temperature 97.4 F L Pulse Rate 85 Respiratory Rate 18 Blood Pressure 114/57 L Pulse Oximetry 95 Oxygen Flow Rate 0 Oxygen Delivery Method Room Air Oxygen Flow Rate 0 Narrative Exam Narrative: Lying comfortably in bed during our interview today. SCDs on and functioning. Resp Effort & Inspection: normal respiratory effort and able to speak in complete sentences Cardio Rate: regular rate Other: Extremities appear well perfused. Brisk capillary refill, pulses intact. Skin Other: Clean and dry erwin dressing in place over the right posterior hip. No drainage. Neuro General: patient alert, patient awake and patient oriented x3 Extrem Other: 5/5 strength with DF, PF, EHL bilaterally. Calf soft and nontender bilaterally Gross sensation intact throughout bilateral extremities. 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 2) continue multimodal pain management with ice to the hip for additional pain control. Patient has postop pain medications at home already. 3) ASA b.i.d. for DVT prophylaxis. 4) Start outpatient physical therapy to work on range of motion and mobility. We will discuss with case management to coordinate possible home health PT for the first few weeks postop as this patient still has poor mobility and her 1st outpatient physical therapy appointment is not set up until 01/04/2024. 5) keep dressing intact, clean, dry until 2 week postop appointment. No soaking the incision site in pools or tubs. No topical ointments or creams to the incision site. 5) Follow up at [facility] orthopedics in 2 weeks for a postop appointment and wound check. All patient's questions were answered, they demonstrates understanding and are in agreement with the plan. Call our office if any questions or concerns arise. Discharge Plan Discharge orders & Medications Prescriptions: New oxycodone 5 mg Tablet 5 mg PO Q4-6H PRN (Reason: Pain, Moderate (4-6)) Qty: 30 0RF aspirin 81 mg Tablet,Delayed Release (Dr/Ec) 81 mg PO BID 42 Days Qty: 84 0RF ibuprofen 400 mg Tablet 400 mg PO Q4H PRN (Reason: Pain, Mild (1-3)) Qty: 30 0RF ondansetron 4 mg Tablet,Disintegrating 4 mg PO Q4HR PRN (Reason: Nausea) Qty: 10 0RF hydroxyzine HCl 25 mg Tablet 25 mg PO Q6H PRN (Reason: Nausea) Qty: 30 0RF docusate sodium 100 mg Capsule 100 mg PO BID PRN (Reason: constipation) Qty: 30 0RF acetaminophen 325 mg Tablet 650 mg PO Q6H PRN (Reason: Fever/Mild Pain (1-3)) Qty: 90 0RF Continued acetaminophen 500 mg Tablet 1,000 mg PO BID gabapentin 300 mg capsule 300 mg PO BEDTIME PRN (Reason: Pain) bupropion HCl 150 mg tablet extended release 24 hr 300 mg PO DAILY omeprazole 40 mg capsule,delayed release(DR/EC) 40 mg PO DAILY fluoxetine 20 mg capsule 40 mg PO DAILY Patient Comments: TAKE 2 CAPSULES BY MOUTH EVERY DAY triamterene-hydrochlorothiazid 37.5-25 mg tablet 1 tab PO DAILY Patient Comments: TAKE 1 TABLET BY MOUTH EVERY DAY Follow up/Referrals: Savi Doyle MD [Primary Care Provider] - Miriam Booth MD [Physician] - (Follow up as scheduled at [facility] in 2 weeks. 12/26/2023 with NAYELY Wakefield at 1:30pm) Diet/Activity/Treatments Diet: Diet as Tolerated Activity: Weight-bearing as tolerated. Maintain posterior hip precautions. Cold/Heat Therapy: Ice to the hip for additional pain control Skin/Wound/Dressing Care Report to your healthcare provider any signs of infection, such as:: chills, fever, night sweats, unusual drainage and unusual redness Dressing: Keep dressing intact, clean and dry until 2 week post-op appointment. No soaking the incision site in pools or tubs. No topical ointments or creams to the incision site. Special Rehabilitation Services Reason for rehabilitation: Post-operative therapy Rehab type: Physical therapy Visit Report/Discharge Packet Instructions: DI for Hip Replacement Discharge Data Primary Care Provider: Savi Doyle Attending Provider: Miriam Booth Quality VTE Deep Vein Thrombosis/Pulmonary Embolism Present on Admission: No
[2023-12-14 08:34] VITALS: BP 128/77; PULSE 79; RESP 18; TEMP 36.9; O2SAT 97
--- NOTE | 2023-12-14 09:36 | OT.IP.EVAL ---
Current Diagnoses Unilateral primary osteoarthritis, right hip (12/13/23) Surgery Performed Operation Date: 12/13/23 10:45 Actual Procedures p Total Hip Arthroplasty(Right) - Miriam Booth MD Past Medical History (Last Reviewed 12/13/23 @ 09:21 by Karolina Dawn, RN) Acid reflux Arthritis Degenerative joint disease of both hips Depression Facet arthropathy, lumbar Graves' disease HTN (hypertension) Lumbar foraminal stenosis Morbid obesity due to excess calories Nonunion of fracture (~2020) Osteoarthritis Stomach ulcer Tricompartment degenerative joint disease of knee Surgical History (Last Reviewed 12/13/23 @ 09:21 by Karolina Dawn, ANDI) H/O left knee surgery 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 (Rec: 12/14/23 10:02 [facility] [id number]) Medical Review Prior Functional Status Medical History Reviewed Yes Communication Independent Mobility and Gait Pt using a pick out hand walker and only able to walk 10 ft at a time. Activities of Daily Living and IADL's Pt having more difficulty with ADl needs. Social History Household Members spouse Living Arrangements House Number of Stairs To Enter/Railing? NO steps to enter. Home Environment Standard Height Toilet,High Toilet Home Equipment Straight Cane,Hand Held Shower Additional Social History Comment Pt has a toilet paper aid and standard walker with no wheels . Pt states has borrowed a wc but is youth sized but state will not use it. Pt's to be able to assist for the weekend and longer if needed. M2 OT-IP Current Condition Start: 12/14/23 09:39 Freq: Status: Active Protocol: Document 12/14/23 09:40 [facility] (Rec: 12/14/23 10:02 [facility] [id number]) Occupational Therapy Current Condition Current Condition Evaluation Date 12/14/23 Treatment Diagnosis S/P R CLAUDINE posterior approach Diagnosis Onset Date 12/13/23 Post Operative Precautions Posterior Hip Precautions No Hip Flexion > 90 degrees,No Hip Internal Rotation,No Hip Adduction M3 OT- IP Subjective and Pain Start: 12/14/23 09:39 Freq: Status: Active Protocol: Document 12/14/23 09:40 [facility] (Rec: 12/14/23 10:02 [facility] [id number]) OT- Subjective Occupational Therapy Visit Type Type Initial Evaluation Visit Start Time 08:43 Visit Stop Time 09:36 Occupational Therapy Visit Comments Patient Comments Pt wanting to get up. Patient/Caregiver Goals To go home. OT Pain Assessment Pain When Pain Assessed During Mobility Pain Present Pain Present Pain Reported Location Right Hip Intensity 4 Scale Used Numeric (0 - 10) M4 OT- IP ADL's Start: 12/14/23 09:39 Freq: Status: Active Protocol: Document 12/14/23 09:40 [facility] (Rec: 12/14/23 10:02 [facility] [id number]) OT BOA-Sxec-Zureuec General Evaluation Self-Feeding Ability Independent OT ADL-Grooming General Evaluation Grooming Ability Standby Assistance Areas Needing Assistance Retrieving/Set-up of Grooming Items Comments OT Grooming Comments Pt states did earlier after set-up. OT ADL-Oral Care Comments Oral Care Comments Pt states did earlier. OT ADL-Dressing General Eval Lower Body Dressing Ability Maximum Assistance Comments OT Dressing Comments Able to initiate training of LB dressing equipment and able to practice use of garnett machine operator to juan brief over her feet. Pt will benefit from getting LB dressing equipment. OT ADL-Toileting General Evaluation Toileting Ability Total Assistance Comments OT Toileting Comments Pt use of purewick. Pt states has a toilet paper aid at home, emphasized that pt will need assist at this time. Pt normally wears incontinence pads at home. Also suggested to have the 3 in 1 placed next to the couch if having to get up to the bathroom at night and to get assist. OT ADL-Bathing Comments OT Bathing Comments Not performed, sponging off more appropriate at this time. M5 OT- IP IADL's Start: 12/14/23 09:39 Freq: Status: Active Protocol: Document 12/14/23 09:40 [facility] (Rec: 12/14/23 10:02 [facility] [id number]) OT-Instrumental Activities of Daily Living Deficits IADL Deficits Identified Deficits Home Safety Awareness Home Safety Comments Pt a bit forgetful and needing cue to recall and incorporate her hip precautions for ADl and mobility needs. Medication Management Medication Management Comments Pt will benefit from supervision. Money Management Money Management Caregiver Provides Assistance Meal Preparation Meal Preparation Caregiver Provides Assist Paper Colorer Paper Colorer Caregiver Provides Assist M6 OT- IP Functional Cognition Start: 12/14/23 09:39 Freq: Status: Active Protocol: Document 12/14/23 09:40 [facility] (Rec: 12/14/23 10:02 [facility] [id number]) Cognitive Factors Limiting Selfcare Function Cognitive Ability Level of Alertness Alert Patient Orientation Name,Place,Situation Attention Span Ability Capable of Focused Attention, Capable of Sustained Attention Ability to Follow Commands Able to Follow One Step Commands with Increased Time, Able to Follow One Step Commands with Repetition Memory Description Short Term Impaired Safety Awareness Decreased Recall of Precautions,Decreased Ability to Apply Precautions Cognitive Comments Cognitive Assessment Comments Pt needing reminders to recall and incorporate her hip precautions for ADl and mobility needs. VC for safety awareness as well. Pt needing concrete cues to follow. OT- Vision and Hearing OT- Hearing Assessment OT- Hearing Assessment WFL OT- Vision Assessment Visual Acuity Contact Lenses Visual Attentiveness WFL Occular Pursuits WFL M7 OT- IP Mobility and Balance Start: 12/14/23 09:39 Freq: Status: Active Protocol: Document 12/14/23 09:40 [facility] (Rec: 12/14/23 10:02 [facility] [id number]) OT- Bed Mobility Assessment Supine to Sit Supine to Sit Assist Maximum Assistance Scooting Scooting to Edge of Bed Maximum Assistance OT-Transfer Assessment Sit to and From Stand Sit to and from Stand Moderate Assistance Transfers Transfer Ability Moderate Assistance Technique Transfer Destination Bed,Chair Transfer Technique Stand Step Pivot Devices Transfer Assistive Devices Gait Belt,Front Wheeled Walker Comments Mobility Comments Pt insistent on getting out on the left side of the bed as she does at home and not initially understanding it would be easier to get out on the right side. Assist to help with her RLE to the edge of the bed and assist to get her trunk upright MAX A. MODA to stand from the high bed to the FWW and MODAX 1 for transfer to chair , assist for steadying, vc for safety and assist for balance. Pt states to sleep on her couch at home. OT- Balance Assessment Sitting Balance and Reactions Static Sitting Balance Ability Normal Dynamic Sitting Balance Ability Good Standing Balance and Reactions Static Standing Balance Ability Fair Dynamic Standing Balance Ability Poor M8 OT- IP Objective Assessments Start: 12/14/23 09:39 Freq: Status: Active Protocol: Document 12/14/23 09:40 [facility] (Rec: 12/14/23 10:02 [facility] [id number]) OT Gross Range of Motion Upper Extremity Range of Motion Assessment Left Impaired OT Strength Upper Extremity Strength Assessment Left Impaired M9 OT- IP Assessment and Plan Start: 12/14/23 09:39 Freq: Status: Active Protocol: Document 12/14/23 09:40 [facility] (Rec: 12/14/23 10:02 [facility] [id number]) OT Summary Assessment and Plan Potential Rehabilitation Potential Good Analytic Complexity at Evaluation Low Summary OT Impairments Pain,Strength,Balance, Functional Cognition, Functional Mobility,Grooming, Dressing,Toileting,Bathing, Toilet Transfers,Shower Transfers,Activity Tolerance Progress Towards Goals Slow Progress due to Medical Issues,Slow Progress due to Activity Tolerance,Slow Progress due to Cognition Assessment Summary Pt low complexity and main barriers are pain, needing concrete cues and repetition to follow her hip precautions, and at this time will need assist for all ADL and mobility needs. At this current function, pt would benefit from short skilled rehab pending progress and caregiver training as pt progresses and hopefully to go home with 24/7 available assist and home health. Pt states does not have any outpt PT appointments set up at this time. Pt will benefit form getting a FWW. Goals Self-Feeding Goal Independent Grooming Goal Independent Dressing Goal Independent,[employer] Sales Consultant Toileting Goal Standby Assistance,Toilet Paper Aid Bathing Goal Minimal Assistance Toilet Transfer Goal Independent Shower Transfer Goal Standby Assistance Patient/Caregiver Education Goal Demonstrate Post-Op Precautions,Caregiver Independent Assisting Patient Days to Meet Goals 10 Frequency of Treatment Frequency Of Treatment Once a Day Treatment Plan OT Treatment Plan ADL Training,Functional Cognition Training,Functional Mobility,Patient/Family Education,Discharge Planning Discharge Recommendations OT Discharge Recommendations Home with 24/7 Assist Available,Home Health,SNF Rehab,Outpatient PT,Home vs SNF Home Equipment Needs LB dressing equipment, FWW Transportation Needs at Discharge Wheelchair/Cabulance
--- NOTE | 2023-12-14 10:10 | PT.IIE ---
Current Diagnoses Unilateral primary osteoarthritis, right hip (12/13/23) Surgery Performed Operation Date: 12/13/23 10:45 Actual Procedures p Total Hip Arthroplasty(Right) - Miriam Booth MD Surgical History (Last Reviewed 12/13/23 @ 09:21 by Karolina Dawn, RN) H/O left knee surgery 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) History of total left knee replacement (10/30/22) History of total right knee replacement (07/04/22) S/P epidural steroid injection Medical History (Last Reviewed 12/13/23 @ 09:21 by Karolina Dawn, RN) Acid reflux Arthritis Degenerative joint disease of both hips Depression Facet arthropathy, lumbar Graves' disease HTN (hypertension) Lumbar foraminal stenosis Morbid obesity due to excess calories Nonunion of fracture (~2020) Osteoarthritis Stomach ulcer Tricompartment degenerative joint disease of knee Physical Therapy Inpatient Evaluation/Re-Eval M1 PT/OT-IP Prior Functional Status Start: 12/14/23 12:12 Freq: NEEDED Status: Active Protocol: Document 12/14/23 10:10 AB (Rec: 12/14/23 12:26 AB [id number]) Medical Review Prior Functional Status Medical History Reviewed Yes Communication able to make needs known Mobility and Gait pt stated that she was modified independent with all mobilities and ambulation using a standard walker Social History Household Members spouse Living Arrangements House Number of Floors (Floors) One Floor Number of Stairs To Enter/Railing? ramp to enter Home Environment Standard Height Toilet,Walk in Shower Home Equipment Straight Cane,Bedside Commode, Shower Seat with Backrest,Hand Held Shower Additional Social History Comment pt has a standard walker pt stated that she plans to sleep on her couch recliner M2 PT-IP Current Condition Start: 12/14/23 12:12 Freq: NEEDED Status: Active Protocol: Document 12/14/23 10:10 AB (Rec: 12/14/23 12:26 AB [id number]) Physical Therapy Current Condition Current Condition Evaluation Date 12/14/23 Treatment Diagnosis s/p R CLAUDINE posterior; difficulty in walking Onset Date 12/13/23 M3 PT-IP Subjective Start: 12/14/23 12:12 Freq: NEEDED Status: Active Protocol: Document 12/14/23 10:10 AB (Rec: 12/14/23 12:26 [id number]) Subjective Physical Therapy Visit Type Type Initial Evaluation Visit Start Time 10:10 Visit Stop Time 10:55 Number of LUBRICATOR GRANULATOR Visits 0 Physical Therapy Visit Comments Patient Comments agreeable to do PT Therapy Pain Assessment Pain When Pain Assessed At Rest Pain Present Pain Present Pain Reported Location Right Hip Intensity 5 Scale Used Numeric (0 - 10) Pain Management Techniques Apply Cold,Distraction, Modification of Treatment,Re- positioning,Timing of Activity with Medications M4 PT-IP Mobility and Gait Start: 12/14/23 12:12 Freq: NEEDED Status: Active Protocol: Document 12/14/23 10:10 AB (Rec: 12/14/23 12:26 [id number]) PT-Transfer Assessment Sit to and From Stand Sit to and from Stand Maximum Assistance,1 Person Assistance,Use of Upper Extremities Equipment Transfer Assistive Device Gait Belt,Front Wheeled Walker Orthotic/Prosthetic Devices or Brace: No Transfers Transfer Destination Bed Transfer Technique Stand Step Pivot Transfer Ability Level of Assist Maximum Assistance,1 Person Assistance,Use of Upper Extremities Comments Mobility Comments pt sitting on the chair and agreeable to do PT. obtained PLOF and home set up from pt. reviewed R posterior hip precautions with pt. Pt able to recall 2/3. pt completed sit to stand max A and max cues with 3 attempts to stand. able to walk ~ 3 ft using fWW max A and cues and chair follow. max A for controlled descend to chair. pt rested. completed sit to stand from chair max A and step transfer to bed max A and max cues using fWW. cued pt on how to do bed mobility sit to supine but pt usually side lie on the L before rolling to the back and at this time should not lay on her L due to hip precautions. pt stated that she will just sleep on her couch recliner. completed sit to stand from the chair max A and max cues and step trasnfer to chair using fWW max A and max cues. positioned pt on the chair. call light and table placed within reach. spouse arrived and informed regarding pt's hip precautions and level of assistance. caregiver training set up at ~ 130 pm this afternoon. Gait Assessment Gait Gait Assistance Required: Maximum Assistance Distance (Feet) 3 Able to Maintain Weight Bearing Status Yes During Gait Assistive Devices Assistive Device Gait Belt,Front Wheeled Walker Orthotic/Prosthetic Devices or Brace: No Gait Deviations General Gait Pattern Antalgic,Decreased Stride Length,Decreased Feet Clearance,Step-to Gait Factors Limiting Gait Function Factors Limiting Gait Function Decreased Activity Tolerance, Decreased Strength,Difficulty Following Directions,Limited Range of Motion,Pain,Poor Balance,Poor Safety Awareness PT-Balance Assessment Sitting Balance and Reactions Static Sitting Balance Ability Good Dynamic Sitting Balance Ability Fair Standing Balance and Reactions Static Standing Balance Ability Poor Dynamic Standing Balance Ability Poor Device Used FWW M5 PT-IP Objective Assessments Start: 12/14/23 12:12 Freq: NEEDED Status: Active Protocol: Document 12/14/23 10:10 AB (Rec: 12/14/23 12:26 AB [id number]) Orientation Orientation/Cognition Level of Alertness Alert Orientation Name,Place,Situation Language Function Ability No Deficits Noted Safety Awareness Decreased Safety Awareness Memory Description No Deficits Noted Gross Range of Motion Lower Extremity ROM Assessment Within Functional Limits Strength Lower Extremity Strength Assessment Bilaterally Impaired Comments Strength Comments RLE: 3-/5 LLE: 3+/5 Coordination Assessment Gross Coordination Gross Coordination WNL Sensation Assessment Sensation Gross Sensation WNL Muscle Tone Muscle Tone WNL Yes M6 PT-IP Treatment Start: 12/14/23 12:12 Freq: NEEDED Status: Active Protocol: Document 12/14/23 10:10 AB (Rec: 12/14/23 12:26 AB [id number]) Physical Therapy Treatment Education Education Provided Precautions,Weight Bearing Status,Safety M7 PT-IP Assessment and Plan Start: 12/14/23 12:12 Freq: NEEDED Status: Active Protocol: Document 12/14/23 10:10 AB (Rec: 12/14/23 12:26 AB [id number]) PT Summary Assessment and Plan Potential Rehabilitation Potential Fair Status of Condition at Evaluation Evolving Summary Impairments Pain,ROM,Strength,Balance, Coordination,Sensation,Tone, Cognition,Bed Mobility, Transfers,Gait,Activity Tolerance Assessment Summary pt is a 68 y/o F s/p R CLAUDINE posterior approach POD 1. pt has R hip posterior precautions and is WBAT. pt requiring max A with mobility using fWW. pt will require 24/ 7 assist at this time and may require SNF rehab. caregiver training set up this afternoon at ~ 130 pm with spouse and will continue to assess mobility progress for safe d/c plan. Goals Bed Mobility Goal Standby Assistance Transfer Goal Standby Assistance,Front Wheeled Walker Gait Goal Standby Assistance,Front Wheel Walker Gait Distance 50 Other Goals improve bed mobility, transfers and ambulation using FWW ~ 150 ft SBA Days to Meet Goals 10 Frequency of Treatment Frequency Of Treatment Twice a Day Treatment Plan Physical Therapy Treatment Plan Bed Mobility Training,Transfer Training,Gait Training, Therapeutic Exercise,Balance Retraining,Post Op Education, Discharge Planning,Hot or Cold Pack,Neuromuscular Re-ed, Coordination Retraining,Manual Therapy Precautions Posterior Hip Precautions No Hip Flexion > 90 degrees,No Hip Internal Rotation,No Hip Adduction Weight Bearing Status Weight Bearing Status Weight Bear as Tolerated Allowed Weight Bearing Amount (enter % RLE WBAT or #) (%) Recommendations To Nursing Amount of Assist Needed 1 Person Assist Discharge Recommendations PT Discharge Recommendations Home with 05/03 Assist Available,Home Health,SNF Rehab,Home vs SNF Equipment Needed for Home Before FWW Discharge Transportation Needs at Discharge Private Vehicle,Wheelchair/ Cabulance
[2023-12-14] MEDS: hydrOXYzine HCL 25 MG TABLET PO (11:51)
--- NOTE | 2023-12-14 13:35 | PT.IPTN ---
Current Diagnoses Unilateral primary osteoarthritis, right hip (12/13/23) Surgery Performed Operation Date: 12/13/23 10:45 Actual Procedures p Total Hip Arthroplasty(Right) - Miriam Booth MD Physical Therapy Treatment Note M2 PT-IP Current Condition Start: 12/14/23 12:12 Freq: NEEDED Status: Active Protocol: Document 12/14/23 10:10 AB (Rec: 12/14/23 12:26 AB [id number]) Physical Therapy Current Condition Current Condition Evaluation Date 12/14/23 Treatment Diagnosis s/p R CLAUDINE posterior; difficulty in walking Onset Date 12/13/23 M3 PT-IP Subjective Start: 12/14/23 12:12 Freq: NEEDED Status: Active Protocol: Document 12/14/23 13:35 AB (Rec: 12/14/23 16:51 AB [id number]) Subjective Physical Therapy Visit Type Type Treatment Note Visit Start Time 13:35 Visit Stop Time 14:15 Number of INSURANCE DEFENSE PARALEGAL Visits 0 Physical Therapy Visit Comments Patient Comments agreeable to do PT Therapy Pain Assessment Pain When Pain Assessed At Rest Pain Present Pain Present Pain Reported Location Right Hip Intensity 5 Scale Used Numeric (0 - 10) Pain Behaviors Guarding Pain Management Techniques Apply Cold,Distraction, Modification of Treatment,Re- positioning,Timing of Activity with Medications M4 PT-IP Mobility and Gait Start: 12/14/23 12:12 Freq: NEEDED Status: Active Protocol: Document 12/14/23 13:35 AB (Rec: 12/14/23 16:51 AB [id number]) PT-Bed Mobility Assessment Sit to Supine Sit to Supine Maximum Assistance,1 Person Assistance,2 Person Assistance Scooting Scooting to Edge of Bed Maximum Assistance Scooting Up and Down in Bed Maximum Assistance PT-Transfer Assessment Sit to and From Stand Sit to and from Stand Maximum Assistance,1 Person Assistance,2 Person Assistance ,Use of Upper Extremities Equipment Transfer Assistive Device Gait Belt,Front Wheeled Walker Orthotic/Prosthetic Devices or Brace: No Transfers Transfer Destination Bed,Bedside Commode Transfer Technique Stand Step Pivot Transfer Ability Level of Assist Maximum Assistance,1 Person Assistance,2 Person Assistance ,Use of Upper Extremities Comments Mobility Comments pt sitting on the chair. spouse in room. reviewed posterior hip precautions with pt and spouse. pt completed sit to stand max A x 1-2 and max cues. pt ambulated ~ 3ft using fWW max Ax 1-2 and max cues and chair follow. pt cued for quads activation. pt sat on the chair. pt not appropriate for caregiver training due to the amount of assistance and unsteadiness with LE . spouse agreed. pt requested to use the toilet . bedside commode positioned next to pt. completed sit to stand max A x 1-2 and max cues and step transfer to bedside commode using FWW max A x 1-2 and max cues. pt required assist with hygiene care and brief management. (+) LOB during standing requiring max A x 1-2 for steadiness. pt ambulated ~ 2 ft to the EOB using FWW max A x 1-2 and max cues. completed sit to supine max A x 1-2 and max cues. positioned pt in bed. call light and table placed within reach. Gait Assessment Gait Gait Assistance Required: Maximum Assistance,1 Person Assist,2 Person Assist Distance (Feet) 3 Able to Maintain Weight Bearing Status Yes During Gait Assistive Devices Assistive Device Gait Belt,Front Wheeled Walker Orthotic/Prosthetic Devices or Brace: No Gait Deviations General Gait Pattern Decreased Stride Length, Decreased Feet Clearance,Step- to Gait Factors Limiting Gait Function Factors Limiting Gait Function Decreased Activity Tolerance, Decreased Strength,Difficulty Following Directions,Limited Range of Motion,Pain,Poor Balance,Poor Safety Awareness M5 PT-IP Objective Assessments Start: 12/14/23 12:12 Freq: NEEDED Status: Active Protocol: Document 12/14/23 10:10 AB (Rec: 12/14/23 12:26 AB [id number]) Orientation Orientation/Cognition Level of Alertness Alert Orientation Name,Place,Situation Language Function Ability No Deficits Noted Safety Awareness Decreased Safety Awareness Memory Description No Deficits Noted Gross Range of Motion Lower Extremity ROM Assessment Within Functional Limits Strength Lower Extremity Strength Assessment Bilaterally Impaired Comments Strength Comments RLE: 3-/5 LLE: 3+/5 Coordination Assessment Gross Coordination Gross Coordination WNL Sensation Assessment Sensation Gross Sensation WNL Muscle Tone Muscle Tone WNL Yes M6 PT-IP Treatment Start: 12/14/23 12:12 Freq: NEEDED Status: Active Protocol: Document 12/14/23 13:35 AB (Rec: 12/14/23 16:51 AB [id number]) Physical Therapy Treatment Education Education Provided Precautions,Weight Bearing Status,Safety M7 PT-IP Assessment and Plan Start: 12/14/23 12:12 Freq: NEEDED Status: Active Protocol: Document 12/14/23 13:35 AB (Rec: 12/14/23 16:51 AB [id number]) PT Summary Assessment and Plan Potential Rehabilitation Potential Fair Summary Impairments Pain,ROM,Strength,Balance, Coordination,Sensation,Tone, Cognition,Bed Mobility, Transfers,Gait,Activity Tolerance Progress Towards Goals Slow Progress due to Pain,Slow Progress due to Activity Tolerance,Slow Progress - Other Assessment Summary pt continues to require max A x 1-2 and max cues and unable to ambulate much due to pain, weakness and decrease activity tolerance. pt will require SNF rehab to improve overall strength and mobility. Goals Bed Mobility Goal Standby Assistance Transfer Goal Standby Assistance,Front Wheeled Walker Gait Goal Standby Assistance,Front Wheel Walker Gait Distance 50 Other Goals improve bed mobility, transfers and ambulation using FWW ~ 150 ft SBA Days to Meet Goals 10 Frequency of Treatment Frequency Of Treatment Twice a Day Treatment Plan Physical Therapy Treatment Plan Bed Mobility Training,Transfer Training,Gait Training, Therapeutic Exercise,Balance Retraining,Post Op Education, Discharge Planning,Hot or Cold Pack,Neuromuscular Re-ed, Coordination Retraining,Manual Therapy Precautions Posterior Hip Precautions No Hip Flexion > 90 degrees,No Hip Internal Rotation,No Hip Adduction Weight Bearing Status Weight Bearing Status Weight Bear as Tolerated Allowed Weight Bearing Amount (enter % RLE WBAT or #) (%) Recommendations To Nursing Amount of Assist Needed 1 Person Assist Discharge Recommendations PT Discharge Recommendations SNF Rehab Transportation Needs at Discharge Wheelchair/Cabulance
[2023-12-14 15:11] VITALS: BP 107/66; PULSE 88; RESP 18; TEMP 37.2; O2SAT 94
[2023-12-14] MEDS: diphenhydrAMINE 25 MG TABLET PO (18:28)
[2023-12-14 20:00] VITALS: BP 103/70; PULSE 85; RESP 16; TEMP 36.4; O2SAT 94
[2023-12-15] MEDS: OXYCODONE IR 5 MG TABLET PO (03:43)
[2023-12-15] MEDS: PANTOPRAZOLE DR 40 MG TABLET PO (05:05)
[2023-12-15 08:00] VITALS: BP 107/65; PULSE 86; RESP 17; TEMP 37.1; O2SAT 93
[2023-12-15] MEDS: ACETAMINOPHEN 325 MG TABLET 650 MG PO (08:17)
[2023-12-15] MEDS: TRIAMTERENE/HCTZ 37.5/25 CAPSULE 1 CAP PO (08:18)
[2023-12-15] MEDS: FLUoxetine 20 MG CAPSULE 40 MG PO (08:18)
[2023-12-15] MEDS: ASPIRIN EC 81 MG TABLET PO ×2 (08:18→21:22)
[2023-12-15] MEDS: polyethylene glycoL 3350 17 GM POWD.PACK PO (08:18)
[2023-12-15] MEDS: buPROPion XL 150 MG TAB 300 MG PO (08:18)
[2023-12-15] MEDS: DOCUSATE 100 MG CAPSULE PO ×2 (08:18→21:23)
[2023-12-15] MEDS: OXYCODONE IR 10 MG TABLET PO ×4 (08:18→21:22)
--- NOTE | 2023-12-15 08:44 | CM.DANOTE ---
Initial DCP Assessment Visit Note Reviewed EMR and team rounds for pt's medical status and anticipated d/c needs. Met with pt/spouse at bedside to introduce self and role. Pt and spouse live in their own home in Sunday, pt is modified independent with spouse's assistance and uses a FWW for baseline mobility. She was found to be alert/oriented and able to express her needs/concerns/preferences for d/c. Payor: Medicare Attending: Dr. Booth Pt is a 68 year-old F post-op day-2 from a R-hip total arthroplasty surgery. This SCALLOPER did meet with her yesterday for the initial assessment, she had initially expressed wanting to have Home Health at discharge, however she was not able to work with therapies as well as she'd hoped to, and now is requesting SNF rehab. SCALLOPER [facility]ed clinicals to [facility], [facility] accepts and can take pt on Sunday, 12/16. CM team will continue to follow and assist with this transition and transport plan to the facility. Pt has had multiple Ortho surgeries, including: R-knee arthroplasty 07/04/22, L-total knee arthroplasty 10/30/22, and R-shoulder arthroplasty 07/18/23. Plan will be for pt to continue to work with therapies to mobilize and pain management. SCALLOPER will continue to follow the above plan. Discharge Planning/Care Management CM Discharge Assessment Start: 12/15/23 08:31 Freq: Status: Active Protocol: Document 12/15/23 08:31 DPL (Rec: 12/15/23 08:42 DPL [id number]) Discharge Planning Assessment Assigned Business Asst JAN Moran Advance Directives? No History Provided By Patient,Significant Other, Medical Record Has Patient been admitted in last 30 No days? Prior Living Arrangements House Household Members spouse Type of transporation used prior to Drives own vehicle admit Independent with ADL's No: Modified independent-uses a walker Is patient alert and oriented? Yes Caregiver for Another No DME Already Rented / Owned Elevated Toilet Seat,FWW / Walker,Cane,Bedside Commode Patient/Family Preference OP PT Therapy Barriers to Discharge No Discharge Plan Home Transportation Arrangement Spouse Referrals Initiated Alf If patient plan is SNF: Has PASSR been Yes completed? Inpatient Status as of 12/13/23 Medicare choice list reviewed on patient electronic tablet with Has Agency SNF been contacted Yes Comment [facility]- can accept on Sunday, will need to clarify a transportation time. Whiteboard Updated in Patient Room with Yes name and ext. # of Business Asst Review Status In Process Please Provide Date Initial DC 12/15/23 Assessment Was Performed Pre-Anesthesia Assessment Start: 10/15/23 10:43 Freq: Status: Active Protocol: Document 12/06/23 12:50 CAB (Rec: 10/15/23 11:10 CAB [id number]) Pre-Anesthesia Assessment Preferred Name Citlali Browne Patient Information Reviewed Via Phone Assessment Assessment Completed With Patient Diagnostic Results BMP/CMP,CBC,EKG Comment Labs/EKG @ Primary Care Provider Savi Doyle Seen Specialist in Last 12 Months Yes Specialist Seen Orthopedist Primary Language Indian Preferred Language Indian Firewall Engineer Required No Height 160.02 cm Weight 117.027 kg Body Mass Index (BMI) 45.7 Hearing Ability Normal Visual Assist Contacts,Glasses Dentition Type Teeth, Natural Present,Teeth, Missing Barriers to Learning None Hx Anesthesia Reactions No Hx Family Anesthesia Reaction No Hx Malignant Hyperthermia No Hx Blood Transfusions No Hx Blood Transfusion Reaction No Anesthesia Review Requested No Diecast 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 No Does patient have LOYD/SOB No Hx Sleep Apnea No CPAP/BIPAP use not prescribed Currently Taking a Beta Allan No Can You Climb a Flight of Stairs Without No SOB Hx Chest Pain No Hx SOB No Hx Syncope or Dizziness No Anti-Coagulant Therapy No Has a It Administrative Assistant No Cardiac Testing No Hx Pacemaker/ICD No Pacemaker Rep Required? No Cardiac Clearance Received Not Applicable Diet Type At Home Regular Dysphagia No Gastrointestinal Symptoms Reflux Chronic UTI No Urinary Catheter Present No Hx Urinary Self Catheterization No Diabetes No Patient No Lactating No Hx Drug Resistant Organism No Presence of External or Internal Medical Yes: Bilateral knee, right Devices shoulder prosthesis Received a COVID vaccine? Yes Received all doses? No Marital Status Lives With spouse Current Living Arrangements House Number of Floors (Floors) Two Floors Support System Spouse Does the Patient Have Assistance After Yes Surgery Patient Discharge Plan Description Return Home Comment Pt advised overnight length of stay per surgeon Additional comment Lives on [facility] Feels Safe in Current Environment Yes Been Physically Hurt or Threatened By a No Person in Current Environment Do you have thoughts of harming yourself None or others? Are you currently considering suicide? No Do you have a plan to hurt yourself or No Plan others? Do You Have Any Spiritual Beliefs That No May Affect Your HC Choices? Do You Have Any Cultural Practices That No May Affect Your HC Choices? Comment Yazidi Who Can We Speak to About Patient's Care Family, friends Identifying Code for Release of Patient Declines to issue Information Health Care Proxy/Next of Kin Moisés () Health Care Proxy or [phone] Emergency Contact Name Christie (Daughter) Emergency Contact Advance Directives? No Power of Patient Safety Attendant No PAC Instructions Do not shave/clip surgical site,Durable medical equipment ,Medications to take/avoid, Nasal antibiotic,No ETOH/ petroleum product on skin DOS, NPO,Pre-surgical wash,Sensory aids,Sturdy shoes/comfortable clothes,Do not bring valuables and remove jewelry
--- NOTE | 2023-12-15 09:35 | P.PN_ITS ---
Subjective Subjective Date Patient Seen: 12/15/23 Time Patient Seen: 09:00 Interval history: Patient is found sitting comfortably in her bed after eating her breakfast. She is still having difficulty and requires assistance to ambulate to the toilet. She is able to urinate. Pain is controlled with oxycodone every 3 hours. She was able to sleep last night. She did remember that she was scheduled for to start physical therapy this week instead of January 03 which she initially thought. Denies any numbness tingling down either extremity. Denies any nausea vomiting fever or chills Exam Vital Signs (past 8 hours): - 12/15/23 08:00 Temperature 98.7 F Pulse Rate 86 Respiratory Rate 17 Blood Pressure 107/65 Pulse Oximetry 93 Oxygen Delivery Method Room Air Oxygen Flow Rate 0 Narrative Exam Narrative: RICO dressing appears to be well-maintained with no signs of drainage. Ice packs are placed over the right hip. No pain or warmth noted on compression of the posterior thigh or calf. 5/5 strength in hip flexors, quadriceps, hamstrings, DF, PF, EHL bilaterally. Sensation to light touch intact throughout BLE. Const General: cooperative and healthy appearing Resp Effort & Inspection: normal respiratory effort and able to speak in complete sentences Objective Labs 12/14/23 05:07 [facility] Medical History Morbid obesity due to excess calories Acid reflux Nonunion of fracture (~2020) Arthritis Osteoarthritis Graves' disease Stomach ulcer HTN (hypertension) Depression Degenerative joint disease of both hips Tricompartment degenerative joint disease of knee Lumbar foraminal stenosis Facet arthropathy, lumbar Surgical History 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) S/P epidural steroid injection History of total left knee replacement (10/30/22) History of total right knee replacement (07/04/22) H/O left knee surgery Family History Father Cancer Mother COPD (chronic obstructive pulmonary disease) case management patient Grandmother Diabetes mellitus Social History household members: spouse Smoking Status: Former smoker alcohol intake: current Assessment & Plan Post-op Postoperative Procedures: Procedures Operation Date: 12/13/23 10:45 Actual Procedure Side Surgeon p Total Hip Arthroplasty Right Miriam Booth MD Postoperative day: 2 Postoperative status narrative: Status post right hip arthroplasty. Patient is having difficulty ambulating throughout her room and is currently requiring 2 person assist. Postoperative plan: routine post-op care and ambulate Postoperative plan narrative: Continue to work with inpatient physical therapy. Multimodal pain control. Continue with aspirin 81 mg b.i.d. and SCDs for VTE prophylaxis. Patient is tentatively scheduled to be transferred to SNF on Sunday if she does not improve with physical therapy enough to be discharged home. Time Spent With Patient Time with patient: less than 15 minutes Quality VTE Deep Vein Thrombosis/Pulmonary Embolism Present on Admission: No
[2023-12-15] MEDS: diphenhydrAMINE 25 MG TABLET PO ×2 (09:53→17:31)
--- NOTE | 2023-12-15 10:35 | PT.IPTN ---
Current Diagnoses Unilateral primary osteoarthritis, right hip (12/13/23) Surgery Performed Operation Date: 12/13/23 10:45 Actual Procedures p Total Hip Arthroplasty(Right) - Miriam Booth MD Physical Therapy Treatment Note M2 PT-IP Current Condition Start: 12/14/23 12:12 Freq: NEEDED Status: Active Protocol: Document 12/14/23 10:10 AB (Rec: 12/14/23 12:26 AB [id number]) Physical Therapy Current Condition Current Condition Evaluation Date 12/14/23 Treatment Diagnosis s/p R CLAUDINE posterior; difficulty in walking Onset Date 12/13/23 M3 PT-IP Subjective Start: 12/14/23 12:12 Freq: NEEDED Status: Active Protocol: Document 12/15/23 10:35 AB (Rec: 12/15/23 12:37 AB [id number]) Subjective Physical Therapy Visit Type Type Treatment Note Visit Start Time 10:35 Visit Stop Time 11:15 Number of CASE HARDENER Visits 0 Physical Therapy Visit Comments Patient Comments agreeable to do PT Therapy Pain Assessment Pain When Pain Assessed At Rest Pain Present Pain Present Pain Reported Location Right Hip Intensity 3 Scale Used Numeric (0 - 10) Pain Management Techniques Distraction,Modification of Treatment,Re-positioning, Timing of Activity with Medications M4 PT-IP Mobility and Gait Start: 12/14/23 12:12 Freq: NEEDED Status: Active Protocol: Document 12/15/23 10:35 AB (Rec: 12/15/23 12:37 AB [id number]) PT-Bed Mobility Assessment Supine to Sit Supine to Sit Maximum Assistance,1 Person Assistance,2 Person Assistance ,Head of Bed Elevated PT-Transfer Assessment Sit to and From Stand Sit to and from Stand Maximum Assistance,1 Person Assistance,2 Person Assistance ,Use of Upper Extremities Equipment Transfer Assistive Device Front Wheeled Walker Orthotic/Prosthetic Devices or Brace: No Transfers Transfer Destination Chair Transfer Technique ambulated. Transfer Ability Level of Assist Maximum Assistance,1 Person Assistance,Use of Upper Extremities Comments Mobility Comments pt supine in bed and agreeable to do PT. reviewed hip precautions with pt and pt recalled 2/3. pt completed supine to sit max A and max cues. assisted pt with brief management and donning of shoes. completed sit to stand max A x 1 and max cues from EOB. max A for standing balance using fWW for support while assisting with brief management. pt completed ambulation using fWW ~ 5 ft max A and max cues. pt sat on the chair and rested. pt agreed to ambulate again. attempted sit to stand from chair x 2 but pt unable to stand despite max A provided. completed sit to stand from EOB again requiring max A x 2 and max cues. pt ambulated in room ~ 12 ft using fWW max A and cues with (+) slight R knee buckling. chair follow needed. pt sat back on chair. pt completed seated LAQx and glute sets. positioned pt on the chair. call light and table placed within reach. Gait Assessment Gait Gait Assistance Required: Maximum Assistance,1 Person Assist Distance (Feet) 12 Able to Maintain Weight Bearing Status Yes During Gait Assistive Devices Assistive Device Gait Belt,Front Wheeled Walker Orthotic/Prosthetic Devices or Brace: No Gait Deviations General Gait Pattern Antalgic,Decreased Stride Length,Decreased Feet Clearance,Step-to Gait Factors Limiting Gait Function Factors Limiting Gait Function Decreased Activity Tolerance, Decreased Strength,Difficulty Following Directions,Limited Range of Motion,Pain,Poor Balance,Poor Safety Awareness M5 PT-IP Objective Assessments Start: 12/14/23 12:12 Freq: NEEDED Status: Active Protocol: Document 12/14/23 10:10 AB (Rec: 12/14/23 12:26 AB [id number]) Orientation Orientation/Cognition Level of Alertness Alert Orientation Name,Place,Situation Language Function Ability No Deficits Noted Safety Awareness Decreased Safety Awareness Memory Description No Deficits Noted Gross Range of Motion Lower Extremity ROM Assessment Within Functional Limits Strength Lower Extremity Strength Assessment Bilaterally Impaired Comments Strength Comments RLE: 3-/5 LLE: 3+/5 Coordination Assessment Gross Coordination Gross Coordination WNL Sensation Assessment Sensation Gross Sensation WNL Muscle Tone Muscle Tone WNL Yes M6 PT-IP Treatment Start: 12/14/23 12:12 Freq: NEEDED Status: Active Protocol: Document 12/15/23 10:35 AB (Rec: 12/15/23 12:37 AB [id number]) Physical Therapy Treatment Exercises Exercises Gluteal Sets M7 PT-IP Assessment and Plan Start: 12/14/23 12:12 Freq: NEEDED Status: Active Protocol: Document 12/15/23 10:35 AB (Rec: 12/15/23 12:37 AB [id number]) PT Summary Assessment and Plan Potential Rehabilitation Potential Fair Summary Impairments Pain,ROM,Strength,Balance, Coordination,Sensation,Tone, Cognition,Bed Mobility, Transfers,Gait,Activity Tolerance Progress Towards Goals Slow Progress due to Pain,Slow Progress due to Activity Tolerance,Slow Progress - Other Assessment Summary pt continues to require max A x 1-2 and max cues with all tasks. improving slowly with ambulation using FWW and able to ambulate ~ 12 ft today requiring max A and max cues and chair follow. pt will require SNF rehab to improve overall strength and mobility independence. Goals Bed Mobility Goal Standby Assistance Transfer Goal Standby Assistance,Front Wheeled Walker Gait Goal Standby Assistance,Front Wheel Walker Gait Distance 50 Other Goals improve bed mobility, transfers and ambulation using FWW ~ 150 ft SBA Days to Meet Goals 10 Frequency of Treatment Frequency Of Treatment Twice a Day Treatment Plan Physical Therapy Treatment Plan Bed Mobility Training,Transfer Training,Gait Training, Therapeutic Exercise,Balance Retraining,Post Op Education, Discharge Planning,Hot or Cold Pack,Neuromuscular Re-ed, Coordination Retraining,Manual Therapy Precautions Posterior Hip Precautions No Hip Flexion > 90 degrees,No Hip Internal Rotation,No Hip Adduction Weight Bearing Status Weight Bearing Status Weight Bear as Tolerated Allowed Weight Bearing Amount (enter % RLE WBAT or #) (%) Recommendations To Nursing Amount of Assist Needed 2 Person Assist Discharge Recommendations PT Discharge Recommendations SNF Rehab Transportation Needs at Discharge Wheelchair/Cabulance
--- NOTE | 2023-12-15 11:49 | CM.DPC ---
DCP Cont. Update: [facility]- has arranged for [facility] to transport pt on Sunday at 11:00am for discharge. PASSAR is done but needs Ortho signature.
[2023-12-15] MEDS: IBUPROFEN 400 MG TABLET PO ×2 (13:15→17:31)
--- NOTE | 2023-12-15 13:22 | PT.IPTN ---
Current Diagnoses Unilateral primary osteoarthritis, right hip (12/13/23) Surgery Performed Operation Date: 12/13/23 10:45 Actual Procedures p Total Hip Arthroplasty(Right) - Miriam Booth MD Physical Therapy Treatment Note M2 PT-IP Current Condition Start: 12/14/23 12:12 Freq: NEEDED Status: Active Protocol: Document 12/14/23 10:10 AB (Rec: 12/14/23 12:26 AB [id number]) Physical Therapy Current Condition Current Condition Evaluation Date 12/14/23 Treatment Diagnosis s/p R CLAUDINE posterior; difficulty in walking Onset Date 12/13/23 M3 PT-IP Subjective Start: 12/14/23 12:12 Freq: NEEDED Status: Active Protocol: Document 12/15/23 13:22 AB (Rec: 12/15/23 14:47 AB [id number]) Subjective Physical Therapy Visit Type Type Treatment Note Visit Start Time 13:22 Visit Stop Time 13:47 Number of AIR BREAKER OPERATOR Visits 0 Physical Therapy Visit Comments Patient Comments agreeable to do PT Therapy Pain Assessment Pain When Pain Assessed At Rest Pain Present Pain Present Pain Reported Location Right Hip Intensity 4 Scale Used Numeric (0 - 10) Pain Management Techniques Distraction,Modification of Treatment,Re-positioning, Timing of Activity with Medications M4 PT-IP Mobility and Gait Start: 12/14/23 12:12 Freq: NEEDED Status: Active Protocol: Document 12/15/23 13:22 AB (Rec: 12/15/23 14:47 AB [id number]) PT-Bed Mobility Assessment Sit to Supine Sit to Supine Maximum Assistance,2 Person Assistance,Head of Bed Elevated PT-Transfer Assessment Sit to and From Stand Sit to and from Stand Maximum Assistance,1 Person Assistance,2 Person Assistance ,Use of Upper Extremities Equipment Transfer Assistive Device Gait Belt,Front Wheeled Walker Orthotic/Prosthetic Devices or Brace: No Transfers Transfer Destination Bed,Toilet Transfer Technique ambulated Transfer Ability Level of Assist Maximum Assistance,1 Person Assistance,Use of Upper Extremities Comments Mobility Comments pt sitting on the chair and agreeable to do PT. reviewed precautions with pt and pt recalled 2/3. educated pt regarding hip precautions. sit<>stand training. educated pt on sit<>stand techniques while adhering to posterior hip precautions. pt completed sit <>stand x 3 with several attempts get to upright position needing max A x 1-2 and max cues. pt requested to use the toilet . ambulated to the bedside commode using FWW ~ 10ft max A and max cues. required max A for standing balance using FWW for brief management. pt ambulated to the bed using FWW max A and max cues. sat on EOB and completed sit to supine max Ax 2 and max cues. positioned pt in bed. call light and table placed within reach. Gait Assessment Gait Gait Assistance Required: Maximum Assistance Distance (Feet) 10 Able to Maintain Weight Bearing Status Yes During Gait Assistive Devices Assistive Device Gait Belt,Front Wheeled Walker Orthotic/Prosthetic Devices or Brace: No Gait Deviations General Gait Pattern Antalgic,Decreased Stride Length,Decreased Feet Clearance,Step-to Gait Factors Limiting Gait Function Factors Limiting Gait Function Decreased Activity Tolerance, Decreased Strength,Difficulty Following Directions,Limited Range of Motion,Pain,Poor Balance,Poor Safety Awareness M5 PT-IP Objective Assessments Start: 12/14/23 12:12 Freq: NEEDED Status: Active Protocol: Document 12/14/23 10:10 AB (Rec: 12/14/23 12:26 AB [id number]) Orientation Orientation/Cognition Level of Alertness Alert Orientation Name,Place,Situation Language Function Ability No Deficits Noted Safety Awareness Decreased Safety Awareness Memory Description No Deficits Noted Gross Range of Motion Lower Extremity ROM Assessment Within Functional Limits Strength Lower Extremity Strength Assessment Bilaterally Impaired Comments Strength Comments RLE: 3-/5 LLE: 3+/5 Coordination Assessment Gross Coordination Gross Coordination WNL Sensation Assessment Sensation Gross Sensation WNL Muscle Tone Muscle Tone WNL Yes M6 PT-IP Treatment Start: 12/14/23 12:12 Freq: NEEDED Status: Active Protocol: Document 12/15/23 13:22 AB (Rec: 12/15/23 14:47 AB [id number]) Physical Therapy Treatment Education Education Provided Precautions,Safety M7 PT-IP Assessment and Plan Start: 12/14/23 12:12 Freq: NEEDED Status: Active Protocol: Document 12/15/23 13:22 AB (Rec: 12/15/23 14:47 AB [id number]) PT Summary Assessment and Plan Potential Rehabilitation Potential Fair Summary Impairments Pain,ROM,Strength,Balance, Coordination,Cognition,Bed Mobility,Transfers,Gait, Activity Tolerance Progress Towards Goals Slow Progress due to Activity Tolerance,Slow Progress - Other Assessment Summary pt progressing slowly with mobility but continues to require max A x 1-2 and max cues with all tasks. pt will need SNF rehab to improve overall strength and mobility independence. will continue to assess progress. Goals Bed Mobility Goal Standby Assistance Transfer Goal Standby Assistance,Front Wheeled Walker Gait Goal Standby Assistance,Front Wheel Walker Gait Distance 50 Other Goals improve bed mobility, transfers and ambulation using FWW ~ 150 ft SBA Days to Meet Goals 10 Frequency of Treatment Frequency Of Treatment Twice a Day Treatment Plan Physical Therapy Treatment Plan Bed Mobility Training,Transfer Training,Gait Training, Therapeutic Exercise,Balance Retraining,Post Op Education, Discharge Planning,Hot or Cold Pack,Neuromuscular Re-ed, Coordination Retraining,Manual Therapy Precautions Posterior Hip Precautions No Hip Flexion > 90 degrees,No Hip Internal Rotation,No Hip Adduction Weight Bearing Status Weight Bearing Status Weight Bear as Tolerated Allowed Weight Bearing Amount (enter % RLE WBAT or #) (%) Recommendations To Nursing Amount of Assist Needed 2 Person Assist Discharge Recommendations PT Discharge Recommendations SNF Rehab Transportation Needs at Discharge Wheelchair/Cabulance
[2023-12-15 14:00] VITALS: BP 119/60; PULSE 86; RESP 20; TEMP 36.4; O2SAT 93
--- NOTE | 2023-12-15 18:56 | PC.NURSE ---
Left hand IV removed earlier in the day due to being accidently dislodged by patient. RN attempted to contact provider twice via litigation claim representative number and left a voicemail. RN did not hear back from provider. Per MAR order new IV site not inserted - see instructions under LR order.
[2023-12-15 20:00] VITALS: BP 120/51; PULSE 87; RESP 18; TEMP 36.4; O2SAT 94
[2023-12-15] MEDS: hydrOXYzine HCL 25 MG TABLET PO (21:22)
[2023-12-16] MEDS: OXYCODONE IR 5 MG TABLET PO ×5 (05:23→21:28)
[2023-12-16] MEDS: diphenhydrAMINE 25 MG TABLET PO ×4 (05:23→21:28)
[2023-12-16] MEDS: PANTOPRAZOLE DR 40 MG TABLET PO (05:23)
[2023-12-16 08:00] VITALS: BP 129/72; PULSE 85; RESP 18; TEMP 36.6; O2SAT 94
--- NOTE | 2023-12-16 09:43 | PM.PNPO.1 ---
Subjective Subjective Date Patient Seen: 12/16/23 Time Patient Seen: 09:43 Interval history: She is doing much better. She is sitting up at bedside getting Saran wrap applied to her hip so that she can get her shower. She was up yesterday with therapy she did walk around the room some. She said that she has to get up normally a couple of times at night to pee. She has not quite independent and getting in and out of bed yet. She still notes restrictions related to both her right hip and her knees bilaterally. She has not had any increased arm pain with transfers. She has posterior buttocks pain but not severe thigh or groin pain. Exam Vital Signs (past 8 hours): - 12/16/23 08:00 Temperature 97.8 F Pulse Rate 85 Respiratory Rate 18 Blood Pressure 129/72 Pulse Oximetry 94 Oxygen Flow Rate 0 Oxygen Delivery Method Room Air Oxygen Flow Rate 0 Narrative Exam Narrative: Oli dressing intact, calves are soft bilaterally, she is neurologically intact distally she can fire her toe flexors and extensors, mild pain with gentle range of motion Objective Labs 12/14/23 05:07 [facility] Medical History Morbid obesity due to excess calories Acid reflux Nonunion of fracture (~2020) Arthritis Osteoarthritis Graves' disease Stomach ulcer HTN (hypertension) Depression Degenerative joint disease of both hips Tricompartment degenerative joint disease of knee Lumbar foraminal stenosis Facet arthropathy, lumbar Surgical History 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) S/P epidural steroid injection History of total left knee replacement (10/30/22) History of total right knee replacement (07/04/22) H/O left knee surgery Family History Father Cancer Mother COPD (chronic obstructive pulmonary disease) case management patient Grandmother Diabetes mellitus Social History household members: spouse Smoking Status: Former smoker alcohol intake: current Assessment & Plan Post-op Postoperative Procedures: Procedures Operation Date: 12/13/23 10:45 Actual Procedure Side Surgeon p Total Hip Arthroplasty Right Miriam Booth MD Postoperative day: 3 Postoperative status: doing well Postoperative status narrative: She is doing reasonably well postoperatively but she has substantial mobility problems. Postoperative plan: routine post-op care and ambulate Postoperative plan narrative: She does not feel that she is independent to be safely discharged home. She is still requiring assistance and she does require additional therapy. We made a plan for her to be discharged to an ECF tomorrow. Time Spent With Patient Time with patient: 15-24 minutes Quality VTE Deep Vein Thrombosis/Pulmonary Embolism Present on Admission: No
[2023-12-16] MEDS: DOCUSATE 100 MG CAPSULE PO ×2 (09:56→21:28)
[2023-12-16] MEDS: ASPIRIN EC 81 MG TABLET PO ×2 (09:57→21:28)
[2023-12-16] MEDS: FLUoxetine 20 MG CAPSULE 40 MG PO (09:57)
[2023-12-16] MEDS: TRIAMTERENE/HCTZ 37.5/25 CAPSULE 1 CAP PO (09:57)
[2023-12-16] MEDS: buPROPion XL 150 MG TAB 300 MG PO (09:57)
--- NOTE | 2023-12-16 11:46 | PT.IPTN ---
Current Diagnoses Unilateral primary osteoarthritis, right hip (12/13/23) Surgery Performed Operation Date: 12/13/23 10:45 Actual Procedures p Total Hip Arthroplasty(Right) - Miriam Booth MD Physical Therapy Treatment Note M2 PT-IP Current Condition Start: 12/14/23 12:12 Freq: NEEDED Status: Active Protocol: Document 12/14/23 10:10 AB (Rec: 12/14/23 12:26 AB [id number]) Physical Therapy Current Condition Current Condition Evaluation Date 12/14/23 Treatment Diagnosis s/p R CLAUDINE posterior; difficulty in walking Onset Date 12/13/23 M3 PT-IP Subjective Start: 12/14/23 12:12 Freq: NEEDED Status: Active Protocol: Document 12/16/23 11:14 MB (Rec: 12/16/23 11:45 MB [id number]) Subjective Physical Therapy Visit Type Type Treatment Note Visit Start Time 11:14 Visit Stop Time 11:34 Number of INTEGRATION MANAGER Visits 0 Physical Therapy Visit Comments Patient Comments Pt states that she got up with SHADE CLOTH FINISHER to shower about an hour ago. Therapy Pain Assessment Pain When Pain Assessed During Mobility Pain Present Pain Present Pain Reported Location Right Hip Intensity 6 Scale Used Numeric (0 - 10) Pain Management Techniques Distraction,Modification of Treatment,Re-positioning, Timing of Activity with Medications M4 PT-IP Mobility and Gait Start: 12/14/23 12:12 Freq: NEEDED Status: Active Protocol: Document 12/16/23 11:14 MB (Rec: 12/16/23 11:45 MB [id number]) PT-Transfer Assessment Sit to and From Stand Sit to and from Stand Moderate Assistance,1 Person Assistance,Use of Upper Extremities Equipment Transfer Assistive Device Gait Belt,Front Wheeled Walker Orthotic/Prosthetic Devices or Brace: No Transfer Ability Level of Assist Moderate Assistance,1 Person Assistance,Use of Upper Extremities Comments Mobility Comments Pt sitting up in chair and returned to chair after short gait trial. PT cues pt to unweight right foot with STS and encourages pt that she does not have to keep right foot so far in front as to not WB on it: pt has decreased height and the surface is not too low for her as far as hip precautions. Gait Assessment Gait Gait Assistance Required: Contact Guard Assist Distance (Feet) 5 Able to Maintain Weight Bearing Status Yes During Gait Assistive Devices Assistive Device Gait Belt,Front Wheeled Walker Orthotic/Prosthetic Devices or Brace: No Gait Deviations General Gait Pattern Antalgic,Decreased Stride Length,Decreased Feet Clearance,Step-to Gait Factors Limiting Gait Function Factors Limiting Gait Function Decreased Activity Tolerance, Decreased Strength,Difficulty Following Directions,Limited Range of Motion,Pain,Poor Balance,Poor Safety Awareness Comments Gait Comments Pt reports high pain and she has a hard time following commands for step-to gait for forward gait and then backward gait with RW. She does not package pick up either foot well with forward gait. PT-Balance Assessment Sitting Balance and Reactions Static Sitting Balance Ability Good Dynamic Sitting Balance Ability Fair Standing Balance and Reactions Static Standing Balance Ability Fair Dynamic Standing Balance Ability Fair Device Used RW M5 PT-IP Objective Assessments Start: 12/14/23 12:12 Freq: NEEDED Status: Active Protocol: Document 12/14/23 10:10 AB (Rec: 12/14/23 12:26 AB [id number]) Orientation Orientation/Cognition Level of Alertness Alert Orientation Name,Place,Situation Language Function Ability No Deficits Noted Safety Awareness Decreased Safety Awareness Memory Description No Deficits Noted Gross Range of Motion Lower Extremity ROM Assessment Within Functional Limits Strength Lower Extremity Strength Assessment Bilaterally Impaired Comments Strength Comments RLE: 3-/5 LLE: 3+/5 Coordination Assessment Gross Coordination Gross Coordination WNL Sensation Assessment Sensation Gross Sensation WNL Muscle Tone Muscle Tone WNL Yes M6 PT-IP Treatment Start: 12/14/23 12:12 Freq: NEEDED Status: Active Protocol: Document 12/16/23 11:14 MB (Rec: 12/16/23 11:45 MB [id number]) Physical Therapy Treatment Exercises Exercises Ankle Pumps Education Education Provided Precautions,Safety Other Treatments Other Treatment Performed Pt recalls 1/3 hip precautions and reviewed againg today M7 PT-IP Assessment and Plan Start: 12/14/23 12:12 Freq: NEEDED Status: Active Protocol: Document 12/16/23 11:14 MB (Rec: 12/16/23 11:45 MB [id number]) PT Summary Assessment and Plan Potential Rehabilitation Potential Fair Summary Impairments Pain,ROM,Strength,Balance, Coordination,Bed Mobility, Transfers,Gait,Activity Tolerance Progress Towards Goals Slow Progress due to Pain Assessment Summary Pt has high reports of pain that appear to be the biggest barrier with PT this date. She does not require as much hands on assistance but does require cues and encouragement for participation with 5' gait forward and backward with RW today. Decreased foot clearance and step-length. Goals Bed Mobility Goal Standby Assistance Transfer Goal Independent,Front Wheeled Walker Gait Goal Independent,Front Wheel Walker Gait Distance 50 Other Goals improve bed mobility, transfers and ambulation using FWW ~ 150 ft SBA Days to Meet Goals 5 Frequency of Treatment Frequency Of Treatment Once a Day Treatment Plan Physical Therapy Treatment Plan Bed Mobility Training,Transfer Training,Gait Training, Therapeutic Exercise,Balance Retraining,Post Op Education, Discharge Planning,Hot or Cold Pack,Neuromuscular Re-ed, Coordination Retraining,Manual Therapy Precautions Posterior Hip Precautions No Hip Flexion > 90 degrees,No Hip Internal Rotation,No Hip Adduction Weight Bearing Status Weight Bearing Status Weight Bear as Tolerated Allowed Weight Bearing Amount (enter % RLE WBAT or #) (%) Recommendations To Nursing Amount of Assist Needed 1 Person Assist Discharge Recommendations PT Discharge Recommendations SNF Rehab Transportation Needs at Discharge Wheelchair/Cabulance
[2023-12-16 13:00] VITALS: BP 130/67; PULSE 89; RESP 20; TEMP 36.6; O2SAT 95
[2023-12-16] MEDS: ACETAMINOPHEN 325 MG TABLET 650 MG PO (14:00)
[2023-12-16] MEDS: IBUPROFEN 400 MG TABLET PO (17:41)
[2023-12-16 20:58] VITALS: BP 123/72; PULSE 86; RESP 18; TEMP 36.6; O2SAT 93
[2023-12-16] MEDS: GABAPENTIN 300 MG CAPSULE PO (21:28)
[2023-12-17] MEDS: OXYCODONE IR 5 MG TABLET PO ×2 (03:53→08:43)
[2023-12-17] MEDS: PANTOPRAZOLE DR 40 MG TABLET PO (06:06)
--- NOTE | 2023-12-17 07:19 | PM.DS.1 ---
History of Present Illness History of Present Illness Date Patient Seen: 12/17/23 Time Patient Seen: 07:19 Chief complaint: R CLAUDINE *OPB* Narrative: Operative Date/Time/Diagnoses Date of procedure: 12/13/23 Time of procedure: 12:30 Pre-op diagnosis: Severe right hip AVN Post-op diagnosis: same Procedure & Clinicians Procedure: Right total hip arthroplasty posterior approach Same procedure as scheduled: Yes Indications: The patient has had progressively worsening right hip pain with radiographic changes consistent with severe AVN with collapse of the right femoral head and progressive right hip arthritis. Non-operative management has failed and the patient has requested total hip replacement. The risks, benefits and alternatives to surgery were discussed with the patient prior to proceeding. Risks discussed included, but were not limited to, failure to relieve pain, leg length discrepancy, dislocation, stiffness, infection, nerve damage, deep venous thrombosis, pulmonary embolism, stroke, coma, heart attack, permanent paralysis and , as well as the potential need for eventual revision of the prosthetic. Surgeon: Miriam Booth Senior Director Creative Services: Buck Wakefield Anesthesia Type: General and Spinal Operative Notes Findings: Severe right hip avascular necrosis with collapse of the femoral head, significant joint effusion, washed out acetabulum was some bony defect in the anterior superior aspect of the acetabulum, adequate stability, soft but overall adequate bone Closure Type: primary Specimen(s): none sent Prosthetic devices, grafts, tissues, transplants, or devices: Booth and nephew R3 size 52 cup, two 6.5 mm screws, neutral poly liner, size 14 cemented Synergy, 36 x +4 Oxinium femoral head, small distal cement restrictor, size 11 cementralizer Estimated Blood Loss (mL): 250 Blood products transfused: none Discharge Providers Provider Discharge Date: 12/17/23 Primary care physician: Savi Doyle MD Consults: 12/13/23 06:00 Consult to Anesthesiology Routine Comment: Consulting Provider: Anesthesiologist Reason for consultation: Regional block for post operative pain control 12/13/23 16:46 Consult to Discharge Planning Routine Comment: Consult to Occupational Therapy Evaluate & Treat Comment: Physician Instructions: Evaluate and treat Consult to Physical Therapy Evaluate & Treat Comment: Physician Instructions: post op CLAUDINE protocol Discharge provider: Smitha Balderas PA-C Summary Hospital Course Discharge Diagnosis: Right hip avascular necrosis, s/p right total hip arthroplasty Hospital Course: Ms Jesús's hospital course was remarkable for slow progress w/ PT. On the morning of POD# 4, the plan was for discharge to SNF rehab prior to going home. She was eating and voiding without difficulty and her pain was well-controlled with oral medication. She was receiving oxycodone in the hospital but preferred to be discharged with hydrocodone. Exam Vital Signs (past 8 hours): Oxygen Delivery Method Room Air Oxygen Flow Rate 0 Narrative Exam Narrative: 4/5 strength in hip flexors, quadriceps, hamstrings; 5/5 DF, PF, EHL on right. Sensation to light touch intact throughout RLE. Calves soft, compressible, nontender. RICO functioning; CDI. 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 Continue multimodal pain management with ice to the hip for additional pain control. Hydrocodone instead of oxycodone. ASA b.i.d. for DVT prophylaxis. Follow up at [facility] orthopedics in 2 weeks for a postop appointment and wound check. Discharge Plan Discharge Plan Patient Disposition: SNF Transfer to: [facility] Transportation: [place] I certify the postop hospital nursing home care is medically necessary on a continuing basis for any conditions for which he/ she received care during this hospitalization.: Yes The receiving facility has agreed to accept transfer and provide medical treatment.: Yes Discharge orders & Medications Prescriptions: New aspirin 81 mg Tablet,Delayed Release (Dr/Ec) 81 mg PO BID 42 Days Qty: 84 0RF docusate sodium 100 mg Capsule 100 mg PO BID PRN (Reason: constipation) Qty: 30 0RF ibuprofen 400 mg Tablet 400 mg PO Q4H PRN (Reason: Pain, Mild (1-3)) Qty: 30 0RF hydroxyzine HCl 25 mg Tablet 25 mg PO Q6H PRN (Reason: Nausea) Qty: 30 0RF ondansetron 4 mg Tablet,Disintegrating 4 mg PO Q4HR PRN (Reason: Nausea) Qty: 10 0RF oxycodone 5 mg Tablet 5 mg PO Q4-6H PRN (Reason: Pain, Moderate (4-6)) Qty: 30 0RF hydrocodone-acetaminophen 5-325 mg tablet 1 tab PO Q4-6H PRN (Reason: pain, severe) Qty: 20 0RF Rx Instructions: DO NOT EXCEED 3000mg TOTAL ACETAMINOPHEN IN 24 HOURS acetaminophen 325 mg Tablet 650 mg PO Q6H PRN (Reason: Fever/Mild Pain (1-3)) Qty: 1 0RF Rx Instructions: DO NOT EXCEED 3000mg TOTAL ACETAMINOPHEN IN 24 HOURS Continued gabapentin 300 mg capsule 300 mg PO BEDTIME PRN (Reason: Pain) bupropion HCl 150 mg tablet extended release 24 hr 300 mg PO DAILY omeprazole 40 mg capsule,delayed release(DR/EC) 40 mg PO DAILY fluoxetine 20 mg capsule 40 mg PO DAILY Patient Comments: TAKE 2 CAPSULES BY MOUTH EVERY DAY triamterene-hydrochlorothiazid 37.5-25 mg tablet 1 tab PO DAILY Patient Comments: TAKE 1 TABLET BY MOUTH EVERY DAY Discontinued acetaminophen 500 mg Tablet 1,000 mg PO BID Follow up/Referrals: Savi Doyle MD [Primary Care Provider] - Miriam Booth MD [Physician] - (Follow up as scheduled at [facility] in 2 weeks. 12/26/2023 with NAYELY Wakefield at 1:30pm) Diet/Activity/Treatments Diet: Diet as Tolerated Activity: Weight-bearing as tolerated. Maintain posterior hip precautions. Cold/Heat Therapy: Ice to the hip for additional pain control Skin/Wound/Dressing Care Report to your healthcare provider any signs of infection, such as:: chills, fever, night sweats, unusual drainage and unusual redness Dressing: May shower; leave dressing in place until follow up in office. In 5-7 days, battery light will flash red, at which point you can cut off the battery pack and dispose of it. No soaking the incision site in pools or tubs. Call the office if the dressing becomes saturated inside. [facility] Reason for rehabilitation: Post-operative therapy Rehab type: Physical therapy and Occupational therapy Visit Report/Discharge Packet Instructions: DI for Hip Replacement Stand Alone Forms: Surgery Discharge Discharge Data Primary Care Provider: Savi Doyle Attending Provider: Miriam Booth Quality VTE Deep Vein Thrombosis/Pulmonary Embolism Present on Admission: No
[2023-12-17 08:00] VITALS: BP 148/85; PULSE 63; RESP 18; TEMP 36.6; O2SAT 99
--- NOTE | 2023-12-17 08:21 | PC.NURSE ---
Assess- Patients erwin dressing wnl and ppx2, she is eating breakfast and will be going to SNF at 1100.
--- NOTE | 2023-12-17 08:35 | CM.DPC ---
DCP Discharge SNF Per Ortho PA, pt medically stable to d/c to SNF today and no identified barriers to discharge. SW faxed [facility], signed med list, scripts, d/c summary, MD orders to [facility] to review and spoke to admissions Danna and confirmed they can accept today and transport still set for 1100. SW updated school age program associate, SUMMER COUNSELOR, and RN and met bedside with pt and updated on above and pt confirms she remains in agreement with d/c to [facility] today and SW answered her SNF questions and pt will update her spouse who is back on Sunday. Plan: Patient to discharge to [facility] today via facility van at 1100 before safe return home to Sunday. JAN Terry
[2023-12-17] MEDS: buPROPion XL 150 MG TAB 300 MG PO (08:44)
[2023-12-17] MEDS: IBUPROFEN 400 MG TABLET PO (08:44)
[2023-12-17] MEDS: FLUoxetine 20 MG CAPSULE 40 MG PO (08:44)
[2023-12-17] MEDS: TRIAMTERENE/HCTZ 37.5/25 CAPSULE 1 CAP PO (08:44)
[2023-12-17] MEDS: ASPIRIN EC 81 MG TABLET PO (08:44)
[2023-12-17] MEDS: diphenhydrAMINE 25 MG TABLET PO (08:45)
[2023-12-17] MEDS: DOCUSATE 100 MG CAPSULE PO (08:45)
== END 2023-12-17 11:00 | DRG 470 ==
LOC: OR 12-17 07:36 → AC 12-17 07:36
PROVIDERS: Admitting Provider Orthopaedic Surgery; PCP Family Medicine; Referring Provider Orthopaedic Surgery; Visit Provider Orthopaedic Surgery
PROC: 0SR90JZ Replacement of Right Hip Joint with Synthetic Substitute, Open Approach (ICD-10-PCS; CPT 27130; principal; 2023-12-13 10:45)
DX: M87.051 Idiopathic aseptic necrosis of right femur (principal); Z68.41 Body mass index [BMI] 40.0-44.9, adult; K21.9 Gastro-esophageal reflux disease without esophagitis; F32.A Depression, unspecified; E66.01 Morbid (severe) obesity due to excess calories; Z87.891 Personal history of nicotine dependence
CPT/HCPCS: 36415; 72170; 73502; 85014; 85018; 97116; 97162; 97165; 97530; 97535; C1776; A9270; C9290; J0171; J0330; J0690; J1100; J2405; J2704; J3010